=== PATIENT | female | born 1965 | race Caucasian/White ===

== ENCOUNTER 2017-03-05 21:22 | Inpatient (IN) | payer OTHER ==
[~2017-03-05] VITALS: Ht 170.2 cm; Wt 171.0 kg
[2017-03-05] MEDS ORDERED: SOD CHLORIDE 0.9% 500 ML IV STA (23:32)
[2017-03-05] MEDS ORDERED: ONDANSETRON 4 MG INJ IV STA (23:32)
[2017-03-05] MEDS ORDERED: HYDROmorphONE 1 MG/ML SYG IV STA (23:32)
[2017-03-05 23:53] LABS: ADD SCAN DIFF NO
[2017-03-05 23:54] LABS: BASOPHIL # 0.1 10^3/ul (0.0-0.1); BASOPHILS % 0.4 % (0.0-2.0); EOSINOPHILS # 0.2 10^3/ul (0.0-0.5); EOSINOPHILS % 1.3 % (0.0-7.0); HEMATOCRIT 40.7 % (37.0-47.0); HEMOGLOBIN 12.3 g/dl (12.0-16.0); LYMPHOCYTES # 2.5 10^3/ul (0.8-2.9); LYMPHOCYTES % 15.8 % (15.0-51.0); MEAN CORPUSCULAR HEMOGLOBIN 24.5 pg (29.0-33.0); MEAN CORPUSCULAR HGB CONC 30.2 g/dl (32.0-37.0); MEAN CORPUSCULAR VOLUME 80.9 fl (82.0-101.0); MEAN PLATELET VOLUME 9.1 fl (7.4-10.4); MONOCYTES % 6.2 % (0.0-11.0); NEUTROPHIL # 12.2 10^3/ul (1.6-7.5); NEUTROPHILS % 75.9 % (39.0-77.0); PLATELET COUNT 553 10^3/UL (140-415); RED BLOOD COUNT 5.03 10^6/ul (4.20-5.40); RED CELL DISTRIBUTION WIDTH 15.6 % (11.5-14.5); WHITE BLOOD COUNT 16.1 10^3/ul (4.8-10.8)
[2017-03-06] MEDS ORDERED: CETI10CA PO (00:10)
[2017-03-06] MEDS ORDERED: RANI150T9 PO (00:10)
[2017-03-06] MEDS ORDERED: AMLO-147 PO (00:10)
[2017-03-06] MEDS ORDERED: VALS1TAB12 PO (00:10)
[2017-03-06] MEDS ORDERED: IBUP200C11 PO (00:10)
[2017-03-06 00:15] LABS: ALANINE AMINOTRANSFERASE 24 IU/L (13-69); ALBUMIN 4.2 g/dl (3.3-4.9); ALBUMIN/GLOBULIN RATIO 0.93; ALKALINE PHOSPHATASE 113 IU/L (42-121); ANION GAP 14 (8-16); ASPARTATE AMINO TRANSFERASE 17 IU/L (15-46); BILIRUBIN,INDIRECT 0.3 mg/dl (0-1.1); BILIRUBIN,TOTAL 0.3 mg/dl (0.2-1.3); BLOOD UREA NITROGEN 12 mg/dl (7-20); CALCIUM 9.5 mg/dl (8.4-10.2); CARBON DIOXIDE 24 mmol/L (21-31); CHLORIDE 103 mmol/L (97-110); CREATININE 0.92 mg/dl (0.44-1.00); GLUCOSE 98 mg/dl (70-220); POTASSIUM 3.7 mmol/L (3.5-5.1); SODIUM 137 mmol/L (135-144); TOTAL PROTEIN 8.7 g/dl (6.1-8.1)
[2017-03-06 00:30] LABS: TROPONIN-I < 0.012 ng/ml (0.00-0.12)
[2017-03-06 01:51] LABS: ADD UMIC YES; URINE BLOOD (Dip) NEGATIVE (NEGATIVE); URINE COLOR YELLOW (YELLOW); URINE GLUCOSE (Dip) NEGATIVE (NEGATIVE); URINE KETONES (Dip) NEGATIVE (NEGATIVE); URINE LEUKOCYTE ESTERASE (Dip) NEGATIVE (NEGATIVE); URINE NITRITE (Dip) NEGATIVE (NEGATIVE); URINE TOTAL PROTEIN (Dip) 1+ (NEGATIVE); URINE UROBILINOGEN (Dip) 0.2 E.U./dL (0.1-1.0)
[2017-03-06 02:04] LABS: URINE BILIRUBIN (Dip) NEGATIVE (NEGATIVE)
[2017-03-06 02:07] LABS: BACTERIA,URINE FEW; MUCUS,URINE OCCASIONAL; SQUAMOUS EPITHELIAL CELL,UR MANY; URINE RBCS 0-2 /HPF (0)
[2017-03-06] MEDS ORDERED: LEVOFLOXACIN 750MG/D5W (PMX) 150 ML IVPB STA (03:31)
--- NOTE | 2017-03-06 03:48 | ERA ---
ER Documentation Chief Complaint Date/Time DATE: 03/06/17 TIME: 03:44 Chief Complaint dizziness, chest pain, headache x 2 days left flank pain since last night HPI This is a 51-year-old female who has multiple complaints. She is complaining of off-and-on dizziness, 1-2 episodes of 2 seconds of chest pain yesterday. Vague headaches off and on for past few weeks. He dull left flank pain is off and on for a few days. And does not mention her right breast lesion/erosion/ redness until I prompted her with the question. The nurse is the one who informed me of her right breast issue. The patient states that her right breast has been gradually eroding in certain areas at the medial aspect of the breast. Patient has a quarter sized area where soft tissue is eroded and inferior to that there are several smaller areas with surrounding erythema there is no leakage of pus or malodor. There does appear to be a palpable mass underneath this area. She has had this lesion for 8 months now. ROS All systems reviewed and are negative except as per history of present illness. Medications Home Meds Reported Medications Ibuprofen* (Advil*) 200 Mg Capsule, 800 MG PO QHS Y for PAIN, CAP 03/06/17 Ranitidine Hcl* (Zantac*) 150 Mg Tablet, 150 MG PO PRN, #60 TAB 03/06/17 Cetirizine Hcl* (Zyrtec*) 10 Mg Capsule, 10 MG PO Y for ALLERGY SIGNS, TAB 03/06/17 Valsartan/Hydrochlorothiazide (Diovan Hct 160-25 mg Tablet) 1 Each Tablet, 1 EACH PO DAILY, TAB 03/06/17 Amlodipine Besylate* (Amlodipine Besylate*) 10 Mg Tablet, 10 MG PO DAILY, #30 TAB 03/06/17 Allergies Allergies: Coded Allergies: cefazolin (Verified Allergy, Unknown, 03/05/17) vancomycin (Verified Allergy, Unknown, 03/05/17) PMhx/Soc History of Surgery: Yes (RT ANKLE) Anesthesia Reaction: No Hx Neurological Disorder: No Hx Respiratory Disorders: No Hx Cardiac Disorders: No Hx Psychiatric Problems: No Hx Miscellaneous Medical Probl: No Hx Alcohol Use: No Hx Substance Use: No Hx Tobacco Use: No Smoking Status: Never smoker FmHx Family History: No coronary disease Physical Exam Vitals Vital Signs Date Time Temp Pulse Resp B/P Pulse Ox O2 Delivery O2 Flow Rate FiO2 03/06/17 02:00 89 16 117/79 100 Room Air 03/05/17 21:29 99.6 109 20 187/88 96 Physical Exam C Const: Well-developed, well-nourished Head: Atraumatic, normocephalic Eyes: Normal Conjunctiva, PERRLA, EOMI, normal sclera, no nystagmus ENT: Normal External Ears, Nose and Mouth, moist mucus membranes. Neck: Full range of motion. No meningismus, no lymphadenopathy. Resp: Clear to auscultation bilaterally, no wheezing, rhonchi, rales, the right breast has a quarter sized area of skin breakdown with protruding subcutaneous skin or a mass. There is a palpable firmness underneath his inferior and medial to this there are 2 linear like skin excoriations with surrounding erythema no weeping of pus or gross abscess Cardio: Regular rate and rhythm, no murmurs, S1 S2 present Abd: Soft, non tender x 4, non distended. Normal bowel sounds, no guarding or rebound, no pulsitile abdominal masses or bruits Skin: No petechiae or rashes, no ecchymosis , no maculopapular rash Back: No midline or flank tenderness Ext: No cyanosis, or edema, FROM x 4, normal inspection, neurovascularly intact x 4 Neur: Awake and alert, STR 5/5 x 4, sensation intact x 4, no focal findings, cerebellum intact Psych: Normal Mood and Affect Result Diagram: 03/05/17 2340 03/05/17 2340 Results 24 hrs Laboratory Tests Test 03/05/17 23:40 03/06/17 01:00 White Blood Count 16.110^3/ul Red Blood Count 5.0310^6/ul Hemoglobin 12.3g/dl Hematocrit 40.7% Mean Corpuscular Volume 80.9fl Mean Corpuscular Hemoglobin 24.5pg Mean Corpuscular Hemoglobin Concent 30.2g/dl Red Cell Distribution Width 15.6% Platelet Count 94007^3/UL Mean Platelet Volume 9.1fl Neutrophils % 75.9% Lymphocytes % 15.8% Monocytes % 6.2% Eosinophils % 1.3% Basophils % 0.4% Nucleated Red Blood Cells % 0.0/100WBC Neutrophils # 12.210^3/ul Lymphocytes # 2.510^3/ul Monocytes # 1.010^3/ul Eosinophils # 0.210^3/ul Basophils # 0.110^3/ul Nucleated Red Blood Cells # 0.010^3/ul Sodium Level 137mmol/L Potassium Level 3.7mmol/L Chloride Level 103mmol/L Carbon Dioxide Level 24mmol/L Anion Gap 14 Blood Urea Nitrogen 12mg/dl Creatinine 0.92mg/dl Glucose Level 98mg/dl Calcium Level 9.5mg/dl Total Bilirubin 0.3mg/dl Direct Bilirubin 0.00mg/dl Indirect Bilirubin 0.3mg/dl Aspartate Amino Transf (AST/SGOT) 17IU/L Alanine Aminotransferase (ALT/SGPT) 24IU/L Alkaline Phosphatase 113IU/L Troponin I < 0.012ng/ml Total Protein 8.7g/dl Albumin 4.2g/dl Globulin 4.50g/dl Albumin/Globulin Ratio 0.93 Urine Color YELLOW Urine Clarity SLIGHTLY CLOUDY Urine pH 6.0 Urine Specific Amigo >=1.030 Urine Ketones NEGATIVE Urine Nitrite NEGATIVE Urine Bilirubin NEGATIVE Urine Urobilinogen 0.2 E.U./dL Urine Leukocyte Esterase NEGATIVE Urine Microscopic RBC 0-2/HPF Urine Microscopic WBC 0-2/HPF Urine Squamous Epithelial Cells MANY Urine Bacteria FEW Urine Mucus OCCASIONAL Urine Hemoglobin NEGATIVE Urine Glucose NEGATIVE% Urine Total Protein 1+ Current Medications Medications (Trade) Dose Ordered Sig/Gearrdo Route PRN Reason Start Time Stop Time Status Last Admin Dose Admin Sodium Chloride (NS) 500 ml @ 500 mls/hr Q1H STAT IV 03/05/17 23:32 03/06/17 00:31 DC 03/05/17 23:45 Hydromorphone HCl (Dilaudid) 1 mg ONCE STAT IV 03/05/17 23:32 03/05/17 23:38 DC Ondansetron HCl 4 mg 4 mg ONCE STAT IV 03/05/17 23:32 03/05/17 23:38 DC Levofloxacin/ Dextrose (Levaquin 750 Mg/ D5W 150 ml (Pmx)) 150 ml @ 100 mls/hr ONCE STAT IVPB 03/06/17 03:31 03/06/17 05:00 Acetaminophen/ Hydrocodone Bitart (Muir (10/325)) 1 tab ONCE ONCE PO 5/25/17 04:00 03/06/17 04:01 Procedures/MDM A breast ultrasound was ordered however I could not get this done tonight because the radiologist on-call is not able to read breast ultrasound. Patient is elevated white blood count will get blood cultures and give antibiotics. Will admit the patient for infected right breast and get an ultrasound in the morning to rule out infected breast cancer or an abscess Departure Diagnosis: Primary Impression: Cellulitis of right breast Additional Impression: Leukocytosis Qualified Code: D72.829 - Leukocytosis, unspecified type Condition: Stable KULDEEP DUMONT DO March 06, 2017 03:48
[2017-03-06] MEDS ORDERED: ONDANSETRON 4 MG INJ IV PRN ×2 (04:00→05:30)
[2017-03-06] MEDS ORDERED: HYDROCODONE/APAP (10/325) TAB PO ONE (04:00)
[2017-03-06] MEDS ORDERED: ACETAMINOPHEN 325 MG TAB PO PRN ×2 (04:00→05:30)
[2017-03-06 04:52] VITALS: Ht 170.2 cm; Wt 171.0 kg
[2017-03-06] MEDS ORDERED: NACL 0.9% 3 ML SYG IV SCH (05:30)
[2017-03-06] MEDS ORDERED: TOBRAMYCIN 80 MG in SOD CHLORIDE 0.9% 50 ML IVPB SCH (05:30)
[2017-03-06] MEDS ORDERED: morphine 2 MG INJ IV PRN (05:30)
[2017-03-06] MEDS ORDERED: RANITIDINE 150 MG TAB PO SCH (05:30)
[2017-03-06] MEDS ORDERED: CLINDAMYCIN 600 MG/D5W (PMX) 50 ML IVPB SCH (05:30)
--- NOTE | 2017-03-06 07:34 | HP ---
DATE OF ADMISSION: 03/06/2017 TIME SEEN: 5 a.m. CHIEF COMPLAINT: "Vertigo and right breast infection." HISTORY OF PRESENT ILLNESS: The patient is a 51-year-old obese female who previously used to work a s a nurse, who presented to the emergency department with the above stated chief complaint. She sta arnol that she has been having symptoms of vertigo for quite some time, which has worsened over the pa st few days. She stated secondary to "an inner ear problem". She also reported that about a year a go she noted some skin change and her skin sloughing off on her right breast. She then started noti cing some palpable mass, as well as an open wound, which has been progressively getting worse. Even though this started a year ago, she never went to a doctor to have it looked at. 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 She states she has been depressed over the past 3 years after she was let g o of her work from [employer] after 30 years because she was taking care of her sick family member s and as a result she was taking a lot of time off and she stated that it was because of that she wa s let go, and since then she has been feeling depressed. She also stated she was never , has no kids and lives alone now, and that is also contributing to her depression. She said she is neve r suicidal or homicidal. Of note, she also requested that she be DNR/DNI. She denied any chest jeffery n, shortness of breath, loss of consciousness, fever, chills, abdominal pain, or urinary symptoms. When she presented to the ER her blood pressure was 187/80, heart rate of 109, respiratory rate 20, temperature 98.6, oxygen saturation 96% on room air. Laboratory values are notable for a WBC of 16, 000, platelets 553, otherwise CBC and CMP are within acceptable range. A breast ultrasound was orde red while the patient was in the ER, but it was not done because the radiologist who was stone fabricator was not able to read the breast ultrasound. The on-call surgeon, I believe Dr. Casas, was consulted b y the ER physician. She received a dose of Levaquin in the ER. NOTE THAT SHE IS ALLERGIC TO VANCOM YCIN AND CEFAZOLIN. REVIEW OF SYSTEMS: A 12-point review of systems was performed and negative except as in the HPI. PAST MEDICAL HISTORY: As per HPI. PAST SURGICAL HISTORY: Right ankle surgery in 2009. SOCIAL HISTORY: Denied a history of tobacco, alcohol or illicit drug use. ALLERGIES: 1. CEFAZOLIN. 2. VANCOMYCIN. HOME MEDICATIONS: 1. Amlodipine. 2. Diovan 3. Ibuprofen. 4. Zantac. 5. Zyrtec. PHYSICAL EXAMINATION: VITAL SIGNS: Currently stable. GENERAL: A morbidly obese female lying in bed, in no acute distress. She is able to speak in full sentences. She is pleasant to talk to. She is alert and oriented x4. HEENT: No obvious head deformity. Pupils are equal and reactive to light. Extraocular muscles are intact. CARDIOVASCULAR: Slightly tachycardic, regular rhythm. LUNGS: Clear anteriorly. ABDOMEN: Obese, soft, nontender, nondistended. Positive bowel sounds. EXTREMITIES: No edema. NEUROLOGIC: No focal deficits. BREASTS: There are several discolorations, as well as a pink exposed area on the right breast. Ther e is also a palpable mass. I did not appreciate any tenderness during examination. Also no bloody discharge was noted. LABORATORY: Pertinent positive results as mentioned in the HPI. IMPRESSION: 1. Right breast cellulitis/probable abscess, with possible underlying malignancy. 2. Sepsis, as evidenced by leukocytosis and tachycardia, secondary to above. 3. Hypertensive urgency, resolved. 4. Chronic vertigo, currently stable. 5. Morbid obesity. PLAN: She will be placed on an antibiotic, noting that SHE IS ALLERGIC TO VANCOMYCIN AND CEFAZOLIN. Will place an ID consult. Given presentation of sepsis, will send blood culture and urine culture , as well as culture from her right breast. Will provide pain medication as needed. Currently she is awaiting surgical evaluation. Will continue her home medications, with adjustment as needed. Further workup and management per clinical course. CODE STATUS: DNR/DNI. Dictated By: REJI ELIZALDE MD DA/KATHLEEN Conf#: [id number] DID#: [id number]
[2017-03-06 08:07] VITALS: BP 107/53; RESP 16
[2017-03-06] MEDS: CLINDAMYCIN 600 MG/D5W (PMX) 50 ML IVPB SCH ×3 (08:43→23:21)
[2017-03-06] MEDS: HYDROCHLOROTHIAZIDE 25 MG TAB PO SCH (08:43)
[2017-03-06] MEDS: VALSARTAN 160 MG TAB PO SCH (08:43)
[2017-03-06] MEDS: AMLODIPINE 10 MG TAB PO SCH (09:58)
[2017-03-06] MEDS: morphine 4 MG/ML VIAL IV PRN (12:55)
--- NOTE | 2017-03-06 14:21 | CONS ---
[facility] INITIAL INPATIENT CONSULTATION NOTE DATE OF CONSULTATION: 03/06/2017 PLACE OF SERVICE: [facility], Second floor, [facility]. ASSESSMENT AND PLAN: A very pleasant but unfortunate 51-year-old lady with history of breast cancer in her mother, as well as lymphoma in her mother and a BMI of 59 for herself as her major comorbidity, presenting with what appears to be a malignant process in her breast. It is difficult to characterize the extent of the disease, but she definitely does not have a picture consistent with inflammatory breast cancer and there is no obvious indication of an abscess based on my clinical exam. The findings are certainly concerning for oncologic issues in the breast and the patient certainly needs further workup to better characterize these areas. The issues that have hampered her from seeking care are her depression and anxiety and her previous personal experience with her mother. I did my best to explain our findings so far and to reassure her that it would be better for us to know the information and at least be able to give her realistic options and more accurate assessment of her risks, benefits and alternatives prior to her making a decision. I described to her my concerns about the possibility of malignancy in her breast, which I believe she understands and also agrees with. She appeared to be agreeable to performance of diagnostic workup for us to figure out exactly what the nature of this disease is and then hopefully we can be able to lay out the options better. I answered all her questions to the best of my ability and she appeared to understand and agree with the plan. With above assessment, I recommend the followin. Bilateral breast ultrasound. 2. Bilateral mammograms. 3. Breast MRI. 4. Brain MRI. 5. Ultrasound-guided breast biopsy of lesion and other masses that may be found on imaging. 6. Oncology consultation. 7. Multidisciplinary Tumor Board presentation. Thank you again for allowing us to participate in the care of this very pleasant lady and I am certain her wonderful family. If there are any questions , please feel free to contact me at [phone]. UPDATED CLINICAL SUMMARY: The patient is a very pleasant 51-year-old lady with comorbidities including BMI of 59 and a history of breast cancer and lymphoma in her mother, presenting through the emergency department to [facility] with a right breast mass that appears to be invading through the skin with minimal discharge. Her main reason for admission was vertigo and right breast infection. COMORBIDITIES: 1. BMI of 59. 2. History of breast cancer in patient's mother diagnosed in her 40s and lived to mid-60s before passing away from lymphoma, which was a second malignancy in her. No other major malignancy reported in the family including no uterine cancer, ovarian cancer, cervical cancer or breast cancer in male members of the family. 3. Anxiety. 4. Depression. 5. Vertigo. 6. Right ankle fracture status post repair with surgery. 7. Inner ear problem per report of the patient. Status post brain scans (? MRI versus CT) at [facility] approximately 2013. DATE OF ADMISSION: 03/06/2017 HISTORY OF PRESENT ILLNESS: The patient is a very pleasant 51-year-old lady with above-mentioned comorbidities who we were kindly asked to consult regarding management of her right breast lesion. She was admitted through the emergency department, as mentioned above with vertigo and breast infection concerns. She reported knowing about abnormal breast findings for approximately a year, but she had chosen not to do any further workup or seek any treatment for it. She sighted fear of radiation injury and anxiety that she had gone through with her mother's breast cancer as the main reasons. She reported no discharge from her breasts bilaterally. She reported doing her own breast exams semi-regularly but had not had a mammogram or an ultrasound for more than 5 years. She had not noted any weight loss or change in appetite, no nausea or vomiting, and the only other issue was vertigo. ALLERGIES: CEFAZOLIN. VANCOMYCIN. HOME MEDICATIONS: 1. Amlodipine. 2. Diovan. 3. Ibuprofen. 4. Zantac. 5. Zyrtec. 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 She does not report any smoking, drinking, or intravenous drug use. FAMILY HISTORY: As above. REVIEW OF SYSTEMS: Other than the above-mentioned, there are no other pertinent positives or pertinent negatives in a complete 14-point review of systems. PHYSICAL EXAMINATION: GENERAL: The patient appears to be a very pleasant /[place] descent lady lying in bed comfortably and in no acute distress. BMI is 59. VITAL SIGNS: Temperature 97.8, blood pressure 107/53, pulse 93, respiratory rate 16, pulse oximetry 95% on room air. HEENT: Normocephalic and atraumatic. Extraocular muscles and hearing are grossly intact bilaterally and symmetrically. Sclerae are nonicteric. Oral cavity is clear; oral mucosa appeared to be pink and moist. Dentition: fair. NECK: Supple. There is no lymphadenopathy or JVD. There is no submental, submandibular or supraclavicular lymphadenopathy. CHEST: Rises symmetrically with each breath; patient is breathing comfortably. There are no audible wheezes, rales or rhonchi on the gross exam. BREAST: Exam is normal on the left and the left axilla shows no masses. Breast exam on the right demonstrates a [id number]-[id number] but slightly erythematous skin overlying the medial aspect of the skin next to the nipple areolar complex and a large area approximately 20 cm in diameter with 2 or 3 areas of granulation tissue coming out through the skin. The breasts are both dense and I do not feel a discrete mass, but both breasts contain areas that feel like there is either dense breast tissue or underlying masses. Right axilla shows no evidence of lymphadenopathy that is obvious. No discharge from nipples on either side.HEART: Pulse is regular and palpable on the right wrist. Capillary refill was normal. Carotid pulses are palpable bilaterally and symmetrically in the neck. EXTREMITIES: Lower extremities contain no pitting edema around the ankles bilaterally and symmetrically. ABDOMEN: Abdomen is soft, nontender and nondistended. There are no peritoneal signs or guarding. No evidence of ascites, organomegaly, caput medusae, engorged subcutaneous veins, or other abnormalities. SKIN: Appears to be pink and feels warm to touch. NEUROLOGIC: Awake, alert, and follows commands appropriately. LABORATORY DATA: White blood cell count 16.1, hemoglobin 12.3, platelets 553. Electrolytes are normal. CO2 24, creatinine 0.92. Liver function and injury parameters are normal. Albumin 4.2 prior to resuscitation urinalysis was negative for leukocyte esterase or nitrite. IMAGING: None. Dictated By: SHIRA JAUREGUI/KATHLEEN Conf#: [id number] DID#: [id number] [facility]ITAL[facility]ita
--- NOTE | 2017-03-06 15:28 | PN ---
Date/Time of Note Date/Time of Note DATE: 03/06/17 TIME: 15:15 Assessment/Plan VTE Prophylaxis VTE Prophylaxis Intervention: SCD's Lines/Catheters IV Catheter Type (from [facility]): Saline [facility] Assessment/Plan Assessment/Plan 1. Right breast lesion, follow up with MRI/mamogram, on clindamycin 2. Leukocytosis, follow up with CBC 3. Hypertensive, controlled 4. Chronic vertigo, currently stable. 5. Morbid obesity. Subjective 24 Hr Interval Summary Free Text/Dictation vertigo is resolved. No fever or chills Exam/Review of Systems Vital Signs Vitals Vital Signs Date Time Temp Pulse Resp B/P Pulse Ox O2 Delivery O2 Flow Rate FiO2 03/06/17 08:07 97.9 93 16 107/53 95 03/06/17 04:00 Room Air Intake and Output 03/05/17 03/05/17 03/06/17 15:00 23:00 07:00 Intake Total 150 ml Balance 150 ml Exam Constitutional: alert, oriented, well developed Head: atraumatic, normocephalic Eyes: EOMI, PERRL, nl conjunctiva, nl lids, nl sclera ENMT: nl external ears & nose, nl lips & teeth Neck: non-tender, supple Respiratory: clear to auscultation, normal air movement, No congested cough, No crackles/rales, No diminished breath sounds, No intercostal retraction, No labored breathing, No other, No respirations, No tactile fremitus, No wheezing Cardiovascular: nl pulses, regular rate and rhythm, No S3, No S4, No bruits, No diastolic murmur, No edema, No gallop, No irregular rhythm, No jugular venous distention (JVD), No murmurs/extra sounds, No other, No rub, No systolic murmur Gastrointestinal: nl liver, spleen, non-tender, soft, No ascites, No bowel sounds, No distended, No firm, No hepatomegaly, No mass , No other, No rebound or guarding, No splenomegaly, No surgical scars, No tender Musculoskeletal: nl extremities to inspection Extremities: normal pulses, No calf tenderness, No clubbing, No cyanosis, No edema, No other, No palpable cord, No pitting pedal edema, No tenderness Neurological: PRESSFITTER II-XII intact, nl mental status, nl speech, nl strength Skin: other (right breast lesion, lump) Lymph: nl lymph nodes Results Result Diagram: 03/05/17 2340 03/05/17 2340 Results 24 hrs Laboratory Tests Test 03/05/17 23:40 03/06/17 01:00 White Blood Count 16.1 H Red Blood Count 5.03 Hemoglobin 12.3 Hematocrit 40.7 Mean Corpuscular Volume 80.9 L Mean Corpuscular Hemoglobin 24.5 L Mean Corpuscular Hemoglobin Concent 30.2 L Red Cell Distribution Width 15.6 H Platelet Count 553 H Mean Platelet Volume 9.1 Neutrophils % 75.9 Lymphocytes % 15.8 Monocytes % 6.2 Eosinophils % 1.3 Basophils % 0.4 Nucleated Red Blood Cells % 0.0 Neutrophils # 12.2 H Lymphocytes # 2.5 Monocytes # 1.0 H Eosinophils # 0.2 Basophils # 0.1 Nucleated Red Blood Cells # 0.0 Sodium Level 137 Potassium Level 3.7 Chloride Level 103 Carbon Dioxide Level 24 Anion Gap 14 Blood Urea Nitrogen 12 Creatinine 0.92 Glucose Level 98 Calcium Level 9.5 Total Bilirubin 0.3 Direct Bilirubin 0.00 Indirect Bilirubin 0.3 Aspartate Amino Transf (AST/SGOT) 17 Alanine Aminotransferase (ALT/SGPT) 24 Alkaline Phosphatase 113 Troponin I < 0.012 Total Protein 8.7 H Albumin 4.2 Globulin 4.50 H Albumin/Globulin Ratio 0.93 Urine Color YELLOW Urine Clarity SLIGHTLY CLOUDY Urine pH 6.0 Urine Specific Jones >=1.030 H Urine Ketones NEGATIVE Urine Nitrite NEGATIVE Urine Bilirubin NEGATIVE Urine Urobilinogen 0.2 E.U./dL Urine Leukocyte Esterase NEGATIVE Urine Microscopic RBC 0-2 Urine Microscopic WBC 0-2 Urine Squamous Epithelial Cells MANY Urine Bacteria FEW Urine Mucus OCCASIONAL Urine Hemoglobin NEGATIVE Urine Glucose NEGATIVE Urine Total Protein 1+ H Medications Medications Current Medications Ondansetron HCl (Zofran Inj) 4 mg Q6H PRN IV NAUSEA AND/OR VOMITING; Start at 05:30 Acetaminophen (Tylenol Tab) 650 mg Q6H PRN PO PAIN LEVEL 1-3 OR FEVER; Start at 05:30 Amlodipine Besylate (Norvasc) 10 mg DAILY PO Last administered on 03/06/17t 09: 58; Admin Dose 10 MG; Start 03/06/17 at 09:00 Ranitidine HCl (Zantac) 150 mg PRN PO ; Start 03/06/17 at 05:30 Valsartan (Diovan) 160 mg DAILY PO Last administered on 03/06/17 08:43; Admin Dose 160 MG; Start 03/06/17 at 09:00 Morphine Sulfate (morphine) 4 mg Q4H PRN IV SEVERE PAIN LEVEL 7-10 Last administered on 03/06/17 12:55; Admin Dose 4 MG; Start 03/06/17 at 05:38 Hydrochlorothiazide 25 mg 25 mg DAILY PO Last administered on 03/06/17 08:43; Admin Dose 25 MG; Start 03/06/17 at 09:00 Clindamycin HCl/ Dextrose 50 ml @ 50 mls/hr Q8H IVPB Last administered on 08:43; Admin Dose 50 MLS/HR; Start 03/06/17 at 08:00 Tobramycin/Sodium Chloride (Tobramycin/NS) 112.5 ml @ 103.75 mls/ hr Q24H IVPB ; Start 03/06/17 at 17:00 Miscellaneous Information (*Rx Drug Level Order Reminder*) RANDOM TOBRAMYCIN LEVEL 5... ONCE ONCE XX ; Start 03/07/17 at 05:00; Stop 03/07/17 at 05:01 JARVIS DACOSTA MD March 06, 2017 15:25
[2017-03-06] MEDS ORDERED: TOBRAMYCIN IVPB SCH (17:00)
[2017-03-06] MEDS ORDERED: SOD CHLORIDE 0.9% IVPB SCH (17:00)
[2017-03-06] MEDS: HYDROCODONE/APAP (5/325) TAB PO PRN (19:37)
[2017-03-06] MEDS ORDERED: SPECIAL NON-STANDARD MEDICATION PO SCH (21:00)
[2017-03-06] MEDS ORDERED: LORAZEPAM 2 MG INJ IM PRN ×2 (22:14→22:30)
[2017-03-06] MEDS ORDERED: LORAZEPAM 2 MG INJ IV PRN (22:30)
[2017-03-06] MEDS: ZOLPIDEM 5 MG TAB PO PRN ×2 (23:27→23:47)
[2017-03-07 05:14] LABS: ADD SCAN DIFF NO
[2017-03-07 05:17] LABS: BASOPHILS % 0.5 % (0.0-2.0); EOSINOPHILS # 0.2 10^3/ul (0.0-0.5); EOSINOPHILS % 2.7 % (0.0-7.0); HEMATOCRIT 37.2 % (37.0-47.0); HEMOGLOBIN 11.4 g/dl (12.0-16.0); LYMPHOCYTES # 1.8 10^3/ul (0.8-2.9); LYMPHOCYTES % 20.5 % (15.0-51.0); MEAN CORPUSCULAR HEMOGLOBIN 24.6 pg (29.0-33.0); MEAN CORPUSCULAR HGB CONC 30.6 g/dl (32.0-37.0); MEAN CORPUSCULAR VOLUME 80.3 fl (82.0-101.0); MEAN PLATELET VOLUME 9.1 fl (7.4-10.4); MONOCYTE # 0.7 10^3/ul (0.3-0.9); MONOCYTES % 7.8 % (0.0-11.0); NEUTROPHILS % 68.3 % (39.0-77.0); PLATELET COUNT 499 10^3/UL (140-415); RED BLOOD COUNT 4.63 10^6/ul (4.20-5.40); RED CELL DISTRIBUTION WIDTH 15.6 % (11.5-14.5); WHITE BLOOD COUNT 8.8 10^3/ul (4.8-10.8)
[2017-03-07 05:38] LABS: ALBUMIN 3.5 g/dl (3.3-4.9)
[2017-03-07 05:39] LABS: POTASSIUM 4.2 mmol/L (3.5-5.1)
[2017-03-07 05:41] LABS: BILIRUBIN,INDIRECT 0.3 mg/dl (0-1.1); BILIRUBIN,TOTAL 0.3 mg/dl (0.2-1.3); CREATININE 1.11 mg/dl (0.44-1.00)
[2017-03-07 05:42] LABS: CALCIUM 9.2 mg/dl (8.4-10.2); PHOSPHORUS 5.1 mg/dl (2.5-4.9)
[2017-03-07] MEDS: HYDROCHLOROTHIAZIDE 25 MG TAB PO SCH (08:36)
[2017-03-07] MEDS: VALSARTAN 160 MG TAB PO SCH (08:36)
[2017-03-07] MEDS: AMLODIPINE 10 MG TAB PO SCH (08:37)
[2017-03-07] MEDS: CLINDAMYCIN 600 MG/D5W (PMX) 50 ML IVPB SCH ×3 (08:37→23:42)
[2017-03-07] MEDS: HYDROCODONE/APAP (5/325) TAB PO PRN ×3 (08:46→21:42)
[2017-03-07 08:53] VITALS: BP 140/84; RESP 16
[2017-03-07] MEDS: LEVOFLOXACIN 750MG/D5W (PMX) 150 ML IVPB SCH (10:39)
--- NOTE | 2017-03-07 10:46 | RADRPT ---
PROCEDURE: Bilateral breast ultrasound. CLINICAL INDICATION: Right breast mass TECHNIQUE: Bilateral whole breast, 4 quadrant and retroareolar, and axillary sonography was perfor med. COMPARISON: None. FINDINGS: Left Breast: No solid or suspicious masses. No malignant adenopathy. No cysts are present. Right Breast: 2-3:00 Mass: 1.8 x 1.6 x 0.7 cm superficial located hypoechoic mass most consistent with sebaceous cyst.. IMPRESSION: 1. Palpable lump that corresponds to 1.8 cm sebaceous cyst 2. Recommend the patient return for routine annual screening mammogram unless there are new clinica l findings in the interim. BI-RADS 2: BENIGN RPTAT: EE .Bin Grey MD, MD Date Time Electronically viewed and signed by .Bin Grey MD, on 03/07/2017 10:46 .M/
--- NOTE | 2017-03-07 14:00 | PN ---
Date/Time of Note Date/Time of Note DATE: 03/07/17 TIME: 13:55 Assessment/Plan Lines/Catheters IV Catheter Type (from [facility]): Peripheral IV Assessment/Plan Assessment/Plan [facility] Progress Note Date of Service: 03/07/17 Today's Impression & Plan: Overall stable. R breast US did not show obvious mass (very good news). Still need more information regarding breasts. Unfortunately surpasses our MRI machine weight limits, but able to have CT. Head CT and chest CT with contrast ordered and discussed with . No indication for acute surgical intervention. With above assessment, I've recommended the following for today: 1. head and chest CT 2. possible need to set up for outpatient MRI of the breast along with bilateral mammogram and breast ultrasound 3. continue current wound care to breast skin lesions 4. follow up with PCP as an outpatient and with us if needed after above 5. multidisciplinary tumor board presentation Thank you again for your great care of this very pleasant patient and wonderful family. If there are any questions, please feel free to call me at [phone]. TOTAL VISIT TIME: 20 minutes of which more than half was spent in [id number] discussion with the patient, possibly including family, as well as coordination of care between multiple physicians and providers. Disclaimer: Inadvertent spelling or grammatical errors are likely due to EHR/ dictation software use and do not reflect on the overall quality of patient care. Updated Clinical Summary: The patient is a very pleasant 51-year-old lady with comorbidities including BMI of 59 and a history of breast cancer and lymphoma in her mother, presenting through the emergency department to [facility] with a right breast mass that appears to be invading through the skin with minimal discharge. Her main reason for admission was vertigo and right breast infection. COMORBIDITIES: 1. BMI of 59. 2. History of breast cancer in patient's mother diagnosed in her 40s and lived to mid-60s before passing away from lymphoma, which was a second malignancy in her. No other major malignancy reported in the family including no uterine cancer, ovarian cancer, cervical cancer or breast cancer in male members of the family. 3. Anxiety. 4. Depression. 5. Vertigo. 6. Right ankle fracture status post repair with surgery. 7. Inner ear problem per report of the patient. Status post brain scans (? MRI versus CT) at [facility] approximately 2013. Subjective: No major events or complaints; unable to have MRI due to weight; no pain; no n/v /d; no sob or cp; + bowel activity; minimal activity Objective: Vitals: See below Exam: GENERAL: On exam, the patient was laying in bed and appeared to be comfortable and in no acute distress. SKIN: Skin appears to be pink and feels warm to touch. NEUROLOGIC: Patient is awake, alert, and follows commands appropriately. Exam/Review of Systems Vital Signs Vitals Vital Signs Date Time Temp Pulse Resp B/P Pulse Ox O2 Delivery O2 Flow Rate FiO2 03/07/17 08:53 98.3 109 16 140/84 98 03/06/17 04:00 Room Air Intake and Output 03/06/17 03/06/17 03/07/17 15:00 23:00 07:00 Intake Total 102 ml 1302.5 ml 490 ml Balance 102 ml 1302.5 ml 490 ml Results Result Diagram: 03/07/17 0451 03/07/17 0440 SHIRA GOODSON M.D. March 07, 2017 14:00
--- NOTE | 2017-03-07 15:32 | PN ---
Date/Time of Note Date/Time of Note DATE: 03/07/17 TIME: 15:25 Assessment/Plan VTE Prophylaxis VTE Prophylaxis Intervention: SCD's Lines/Catheters IV Catheter Type (from [facility]): Peripheral IV Assessment/Plan Assessment/Plan 1. Right breast sebaceous cyst with cellulitis, on antibiotics(levaquin/ clindamycin) 2. Hypertensive, controlled 3. Chronic vertigo, currently stable. 4. Morbid obesity. Subjective 24 Hr Interval Summary Free Text/Dictation afebrile Exam/Review of Systems Vital Signs Vitals Vital Signs Date Time Temp Pulse Resp B/P Pulse Ox O2 Delivery O2 Flow Rate FiO2 03/07/17 08:53 98.3 109 16 140/84 98 03/06/17 04:00 Room Air Intake and Output 03/06/17 03/06/17 03/07/17 14:59 22:59 06:59 Intake Total 102 ml 1302.5 ml 490 ml Balance 102 ml 1302.5 ml 490 ml Exam Constitutional: alert, oriented Psych: nl mood/affect, no complaints Head: atraumatic, normocephalic Eyes: EOMI, PERRL, nl conjunctiva, nl lids ENMT: nl external ears & nose, nl lips & teeth, nl nasal mucosa & septum Neck: non-tender, supple Respiratory: clear to auscultation, normal air movement, No congested cough, No crackles/rales, No diminished breath sounds, No intercostal retraction, No labored breathing, No other, No respirations, No tactile fremitus, No wheezing Cardiovascular: nl pulses, regular rate and rhythm, No S3, No S4, No bruits, No diastolic murmur, No edema, No gallop, No irregular rhythm, No jugular venous distention (JVD), No murmurs/extra sounds, No other, No rub, No systolic murmur Gastrointestinal: nl liver, spleen, non-tender, soft, No ascites, No bowel sounds, No distended, No firm, No hepatomegaly, No mass , No other, No rebound or guarding, No splenomegaly, No surgical scars, No tender Musculoskeletal: nl extremities to inspection Extremities: normal pulses, No calf tenderness, No clubbing, No cyanosis, No edema, No other, No palpable cord, No pitting pedal edema, No tenderness Neurological: CAREER BASED INTERVENTION COORDINATOR II-XII intact, nl mental status, nl speech, nl strength Skin: other (right breast lesion) Results Result Diagram: 03/07/17 0451 03/07/17 0440 Results 24 hrs Laboratory Tests Test 03/07/17 04:40 03/07/17 04:51 Sodium Level 136 Potassium Level 4.2 Chloride Level 102 Carbon Dioxide Level 23 Anion Gap 15 Blood Urea Nitrogen 17 Creatinine 1.11 H Glucose Level 121 Calcium Level 9.2 Phosphorus Level 5.1 H Magnesium Level 2.0 Total Bilirubin 0.3 Direct Bilirubin 0.00 Indirect Bilirubin 0.3 Aspartate Amino Transf (AST/SGOT) 15 Alanine Aminotransferase (ALT/SGPT) 29 Alkaline Phosphatase 103 Total Protein 7.0 # Albumin 3.5 Globulin 3.50 H Albumin/Globulin Ratio 1.00 White Blood Count 8.8 # Red Blood Count 4.63 Hemoglobin 11.4 L Hematocrit 37.2 Mean Corpuscular Volume 80.3 L Mean Corpuscular Hemoglobin 24.6 L Mean Corpuscular Hemoglobin Concent 30.6 L Red Cell Distribution Width 15.6 H Platelet Count 499 H Mean Platelet Volume 9.1 Neutrophils % 68.3 Lymphocytes % 20.5 Monocytes % 7.8 Eosinophils % 2.7 Basophils % 0.5 Nucleated Red Blood Cells % 0.0 Neutrophils # 6.0 Lymphocytes # 1.8 Monocytes # 0.7 Eosinophils # 0.2 Basophils # 0.0 Nucleated Red Blood Cells # 0.0 Random Tobramycin Level 2.9 Medications Medications Current Medications Ondansetron HCl (Zofran Inj) 4 mg Q6H PRN IV NAUSEA AND/OR VOMITING; Start at 05:30 Acetaminophen (Tylenol Tab) 650 mg Q6H PRN PO PAIN LEVEL 1-3 OR FEVER; Start at 05:30 Amlodipine Besylate (Norvasc) 10 mg DAILY PO Last administered on 03/07/17 08: 37; Admin Dose 10 MG; Start 03/06/17 at 09:00 Ranitidine HCl (Zantac) 150 mg PRN PO ; Start 03/06/17 at 05:30 Valsartan (Diovan) 160 mg DAILY PO Last administered on 03/07/17 08:36; Admin Dose 160 MG; Start 03/06/17 at 09:00 Morphine Sulfate (morphine) 4 mg Q4H PRN IV SEVERE PAIN LEVEL 7-10 Last administered on 03/06/17 12:55; Admin Dose 4 MG; Start 03/06/17 at 05:38 Hydrochlorothiazide 25 mg 25 mg DAILY PO Last administered on 03/07/17 08:36; Admin Dose 25 MG; Start 03/06/17 at 09:00 Clindamycin HCl/ Dextrose (Cleocin 600 Mg/ D5W (Pmx)) 50 ml @ 50 mls/hr Q8H IVPB Last administered on 03/07/17 08:37; Admin Dose 50 MLS/HR; Start at 08:00 Acetaminophen/ Hydrocodone Bitart ([place] (5/325)) 1 tab Q4H PRN PO pain Last administered on 03/07/17 08:46; Admin Dose 1 TAB; Start 03/06/17 at 15:30 Zolpidem Tartrate 5 mg 5 mg HS PRN PO INSOMNIA Last administered on 03/06/17 23:47; Admin Dose 5 MG; Start 03/06/17 at 17:00 Levofloxacin/ Dextrose (Levaquin 750 Mg/ D5W 150 ml (Pmx)) 150 ml @ 100 mls/hr Q24H IVPB Last administered on 03/07/17 10:39; Admin Dose 100 MLS/HR; Start at 08:00 Pantoprazole (Protonix Tab) 40 mg DAILY@06 PO ; Start 03/07/17 at 21:00 Lorazepam (Ativan) 1 mg Q6H PRN IV ANXIETY Last administered on 03/06/17 22:22 ; Admin Dose 1 MG; Start 03/06/17 at 22:30 JARVIS DACOSTA MD March 07, 2017 15:32
[2017-03-07] MEDS ORDERED: SOD CHLORIDE 0.9% 100 ML ONE (16:06)
[2017-03-07] MEDS ORDERED: IOHEXOL 300MG/ML 150 ML BTL ONE (16:06)
[2017-03-07 19:50] VITALS: BP 118/69; RESP 20
--- NOTE | 2017-03-07 20:09 | RADRPT ---
PROCEDURE: CT Chest with contrast. CLINICAL INDICATION: Right breast palpable lesion. TECHNIQUE: Helical axial sections were obtained through the chest with intravenous contrast enhanc ement. 90 ml of Omnipaque-300 was used for the intravenous contrast. Coronal and sagittal reforma tted images were obtained from the axial source images. Total exam DLP is 651.32 mGy-cm. CTDIvol is 16.69 mGy. One or more of the following dose reduction techniques were used: Automated exposure co ntrol, adjustment of the mA and/or kV according to patient size, use of iterative reconstruction vinnie hnique. COMPARISON: None FINDINGS: The lungs are clear with no airspace or interstitial disease. There is no pulmonary nodule or mass lesion. There is no mediastinal or hilar lymphadenopathy or mass. The thyroid is mildly diffusely enlarged. There is no axillary, supraclavicular, or internal mammary lymphadenopathy. The breasts are only pa rtially included on the images due to patient body habitus. There is no gross abnormality of the vi sualized portion either breast. The thoracic aorta is not dilated. The heart size is normal. There is no pleural effusion or pericardial effusion. Images through the upper abdomen demonstrate normal visualized portions of the liver, spleen, and ad renals. IMPRESSION: 1. Mildly diffusely enlarged thyroid. 2. The breasts only partially included on the images due to patient body habitus. 3. Otherwise unremarkable study. RPTAT: QQ .Maxwell Rice MD, Date Time Electronically viewed and signed by .Maxwell Rice MD, on 03/07/2017 20:09 .R/
--- NOTE | 2017-03-07 20:12 | RADRPT ---
PROCEDURE: CT Brain without contrast. CLINICAL INDICATION: Right breast palpable lesion. Vertigo. TECHNIQUE: A CT of the brain without contrast was performed utilizing axial sections from the skul l base through the vertex. The patient was scanned without intravenous contrast enhancement. Sagitta l and coronal reformatted images were obtained using the data from the axial images. Total exam DLP is 720.23 mGy-cm. CTDIvol is 45.01 mGy. One or more of the following dose reduction techniques we re used: Automated exposure control, adjustment of the mA and/or kV according to patient size, use o f iterative reconstruction technique. COMPARISON: None available FINDINGS: There is normal guerra-white matter differentiation. The ventricles and cisterns are normal. There is no intracranial hemorrhage or space-occupying lesion. There is no skull fracture or lytic lesion. IMPRESSION: 1. Normal noncontrast CT scan of the brain. RPTAT: QQ .Maxwell Rice MD, MD Date Time Electronically viewed and signed by .Maxwell Rice MD, on 03/07/2017 20:12 .R/
[2017-03-07] MEDS: PANTOPRAZOLE (EC) 40 MG TAB PO SCH (21:41)
[2017-03-08] MEDS: ZOLPIDEM 5 MG TAB PO PRN (00:21)
[2017-03-08] MEDS: morphine 4 MG/ML VIAL IV PRN (00:21)
[2017-03-08] MEDS: PANTOPRAZOLE (EC) 40 MG TAB PO SCH (06:49)
[2017-03-08] MEDS: CLINDAMYCIN 600 MG/D5W (PMX) 50 ML IVPB SCH ×3 (07:55→23:37)
[2017-03-08 08:21] VITALS: BP 92/52; RESP 18
[2017-03-08] MEDS: VALSARTAN 160 MG TAB PO SCH (09:19)
[2017-03-08] MEDS: HYDROCHLOROTHIAZIDE 25 MG TAB PO SCH (09:19)
[2017-03-08] MEDS: AMLODIPINE 10 MG TAB PO SCH (09:19)
[2017-03-08] MEDS: LEVOFLOXACIN 750MG/D5W (PMX) 150 ML IVPB SCH (09:19)
[2017-03-08 09:20] VITALS: BP 132/62
[2017-03-08] MEDS: HYDROCODONE/APAP (5/325) TAB PO PRN ×2 (09:29→20:04)
[2017-03-08] MEDS ORDERED: LORAZEPAM 1 MG TAB PO PRN (11:00)
[2017-03-08] MEDS: MECLIZINE 25 MG TAB PO PRN ×2 (11:49→20:06)
--- NOTE | 2017-03-08 13:07 | PN ---
Date/Time of Note Date/Time of Note DATE: 03/08/17 TIME: 13:04 Assessment/Plan Lines/Catheters IV Catheter Type (from [facility]): Saline Lock [facility] in Place (from [facility]): No Assessment/Plan Assessment/Plan [facility] Progress Note Date of Service: 03/08/17 Today's Impression & Plan: Overall stable. Head CT neg and chest CT did not show acute pathology or obvious malignancy of the axilla or chest, but breast views showed only 20% or less of the volume of each breast. Fortunately, no obvious mass (although I'm waiting to review films with radiology regarding a lymph node in the right chest wall). No indication for acute surgical intervention. With above assessment, I've recommended the following for today: 1. Cont medical management and d/c home when medically stable 2. Outpatient bilateral mammogram and breast ultrasound through PCP 3. Continue current wound care to breast skin lesions 4. Follow up with PCP as an outpatient and with us if needed after above 5. Multidisciplinary tumor board presentation for consideration of further w/u and course Thank you again for your great care of this very pleasant patient and wonderful family. If there are any questions, please feel free to call me at [phone]. TOTAL VISIT TIME: 20 minutes of which more than half was spent in [id number] discussion with the patient, possibly including family, as well as coordination of care between multiple physicians and providers. Disclaimer: Inadvertent spelling or grammatical errors are likely due to EHR/ dictation software use and do not reflect on the overall quality of patient care. Updated Clinical Summary: The patient is a very pleasant 51-year-old lady with comorbidities including BMI of 59 and a history of breast cancer and lymphoma in her mother, presenting through the emergency department to [facility] with a right breast mass that appears to be invading through the skin with minimal discharge. Her main reason for admission was vertigo and right breast infection. 03/07/17: Head CT neg and chest CT did not show acute pathology or obvious malignancy of the axilla or chest, but breast views showed only 20% or less of the volume of each breast. Fortunately, no obvious mass (although I'm waiting to review films with radiology regarding a lymph node in the right chest wall). COMORBIDITIES: 1. BMI of 59. 2. History of breast cancer in patient's mother diagnosed in her 40s and lived to mid-60s before passing away from lymphoma, which was a second malignancy in her. No other major malignancy reported in the family including no uterine cancer, ovarian cancer, cervical cancer or breast cancer in male members of the family. 3. Anxiety. 4. Depression. 5. Vertigo. 6. Right ankle fracture status post repair with surgery. 7. Inner ear problem per report of the patient. Status post brain scans (? MRI versus CT) at [facility] approximately 2013. 8. 03/07/17: Head CT neg and chest CT did not show acute pathology or obvious malignancy of the axilla or chest, but breast views showed only 20% or less of the volume of each breast. Fortunately, no obvious mass (although I'm waiting to review films with radiology regarding a lymph node in the right chest wall). Subjective: No major events or complaints; no pain; no n/v/d; no sob or cp; + bowel activity ; minimal activity Objective: Vitals: See below Exam: GENERAL: On exam, the patient was laying in bed and appeared to be comfortable and in no acute distress. SKIN: Skin appears to be pink and feels warm to touch. NEUROLOGIC: Patient is awake, alert, and follows commands appropriately. Exam/Review of Systems Vital Signs Vitals Vital Signs Date Time Temp Pulse Resp B/P Pulse Ox O2 Delivery O2 Flow Rate FiO2 03/08/17 09:20 132/62 03/08/17 08:21 98.0 91 18 93 03/06/17 04:00 Room Air Intake and Output 03/07/17 03/07/17 03/08/17 15:00 23:00 07:00 Intake Total 200 ml 1290 ml 390 ml Output Total 800 ml Balance 200 ml 1290 ml -410 ml Results Result Diagram: 03/07/17 0451 03/07/17 0440 SHIRA GOODSON M.D. March 08, 2017 13:07
--- NOTE | 2017-03-08 16:16 | PN ---
Date/Time of Note Date/Time of Note DATE: 03/08/17 TIME: 16:13 Assessment/Plan VTE Prophylaxis VTE Prophylaxis Intervention: SCD's Lines/Catheters IV C[facility]ter Type (from [facility] Saline Lock Urinary Cath still in place: No Assessment/Plan Chief Complaint/Hosp Course Assessment and plan 1. Right breast sebaceous cyst with cellulitis. Continue antibiotics. Appears to be improving at present. Continue wound care. 2. Hypertensive hypertension. Continue antihypertensives and adjust as needed 3. History of chronic vertigo. Continue meclizine 4. Morbid obesity. Weight reduction was advised 5. Acute kidney injury. Start on slow IV hydration. Follow-up on renal panel. Disposition and plan: Continue with wound care. Continue antibiotics. Noted with acute kidney injury. Start on IV fluids. Monitor renal panel. Discharge when medically stable and cleared by consultants Discussed plan of care with Dr. Sinclair Problems: Subjective 24 Hr Interval Summary Free Text/Dictation reports feeling weak Exam/Review of Systems Vital Signs Vitals Vital Signs Date Time Temp Pulse Resp B/P Pulse Ox O2 Delivery O2 Flow Rate FiO2 03/08/17 09:20 132/62 03/08/17 08:21 98.0 91 18 93 03/06/17 04:00 Room Air Intake and Output 03/07/17 03/07/17 03/08/17 15:00 23:00 07:00 Intake Total 200 ml 1290 ml 390 ml Output Total 800 ml Balance 200 ml 1290 ml -410 ml Exam Constitutional: alert, obese (morbidly), oriented Psych: nl mood/affect Head: normocephalic Neck: No jvd Respiratory: clear to auscultation, normal air movement Cardiovascular: regular rate and rhythm Gastrointestinal: non-tender, soft Genitourinary - Female: other (noted with wound on breast ) Neurological: MOMD TEACHER II-XII intact, nl mental status, nl speech Skin: other (wound noted on breast on the right ) Results Result Diagram: 03/07/17 0451 03/07/17 0440 Results 24 hrs Laboratory Tests Test 03/08/17 14:03 Vitamin D 1,25-Dihydroxy 16.4 L Medications Medications Current Medications Ondansetron HCl (Zofran Inj) 4 mg Q6H PRN IV NAUSEA AND/OR VOMITING; Start at 05:30 Acetaminophen (Tylenol Tab) 650 mg Q6H PRN PO PAIN LEVEL 1-3 OR FEVER; Start at 05:30 Amlodipine Besylate (Norvasc) 10 mg DAILY PO Last administered on 03/08/17 09: 19; Admin Dose 10 MG; Start 03/06/17 at 09:00 Ranitidine HCl (Zantac) 150 mg PRN PO ; Start 03/06/17 at 05:30 Valsartan (Diovan) 160 mg DAILY PO Last administered on 03/08/17 09:19; Admin Dose 160 MG; Start 03/06/17 at 09:00 Morphine Sulfate (morphine) 4 mg Q4H PRN IV SEVERE PAIN LEVEL 7-10 Last administered on 03/08/17 00:21; Admin Dose 4 MG; Start 03/06/17 at 05:38 Hydrochlorothiazide 25 mg 25 mg DAILY PO Last administered on 03/08/17 09:19; Admin Dose 25 MG; Start 03/06/17 at 09:00 Clindamycin HCl/ Dextrose (Cleocin 600 Mg/ D5W (Pmx)) 50 ml @ 50 mls/hr Q8H IVPB Last administered on 03/08/17 15:29; Admin Dose 50 MLS/HR; Start at 08:00 Acetaminophen/ Hydrocodone Bitart ([place] (5/325)) 1 tab Q4H PRN PO pain Last administered on 03/08/17 09:29; Admin Dose 1 TAB; Start 03/06/17 at 15:30 Zolpidem Tartrate 5 mg 5 mg HS PRN PO INSOMNIA Last administered on 03/08/17 00:21; Admin Dose 5 MG; Start 03/06/17 at 17:00 Levofloxacin/ Dextrose (Levaquin 750 Mg/ D5W 150 ml (Pmx)) 150 ml @ 100 mls/hr Q24H IVPB Last administered on 03/08/17 09:19; Admin Dose 100 MLS/HR; Start at 08:00 Pantoprazole (Protonix Tab) 40 mg DAILY@06 PO Last administered on 03/08/17 06 :49; Admin Dose 40 MG; Start 03/07/17 at 21:00 Meclizine HCl (Antivert) 25 mg Q6 PRN PO VERTIGO Last administered on 5/27/ 17at 11:49; Admin Dose 25 MG; Start 03/08/17 at 11:00 Lorazepam (Ativan) 1 mg Q6H PRN PO ANXIETY; Start 03/08/17 at 11:00 Cholecalciferol 1000 unit 1,000 unit DAILY PO ; Start 03/08/17 at 16:30 Sodium Chloride (NS) 1,000 ml @ 70 mls/hr [id number] IV ; Start 03/08/17 at 16:30 GUS VARGAS March 08, 2017 16:16
[2017-03-08] MEDS: CHOLECALCIFEROL 1,000 UNIT TAB PO SCH (16:54)
[2017-03-08] MEDS: SOD CHLORIDE 0.9% 1,000 ML IV SCH (16:55)
[2017-03-08 20:49] VITALS: BP 129/69; RESP 18
[2017-03-09] MEDS: ZOLPIDEM 5 MG TAB PO PRN ×2 (00:05→23:37)
[2017-03-09] MEDS: HYDROCODONE/APAP (5/325) TAB PO PRN ×4 (00:05→23:37)
[2017-03-09 06:23] LABS: ADD SCAN DIFF NO
[2017-03-09] MEDS: PANTOPRAZOLE (EC) 40 MG TAB PO SCH (06:25)
[2017-03-09 06:43] LABS: BASOPHIL # 0.1 10^3/ul (0.0-0.1); BASOPHILS % 0.5 % (0.0-2.0); EOSINOPHILS # 0.4 10^3/ul (0.0-0.5); EOSINOPHILS % 3.1 % (0.0-7.0); HEMATOCRIT 35.4 % (37.0-47.0); HEMOGLOBIN 10.7 g/dl (12.0-16.0); LYMPHOCYTES # 2.8 10^3/ul (0.8-2.9); LYMPHOCYTES % 25.2 % (15.0-51.0); MEAN CORPUSCULAR HGB CONC 30.2 g/dl (32.0-37.0); MEAN CORPUSCULAR VOLUME 79.4 fl (82.0-101.0); MEAN PLATELET VOLUME 9.8 fl (7.4-10.4); MONOCYTE # 0.8 10^3/ul (0.3-0.9); MONOCYTES % 6.7 % (0.0-11.0); NEUTROPHIL # 7.2 10^3/ul (1.6-7.5); NEUTROPHILS % 64.2 % (39.0-77.0); PLATELET COUNT 480 10^3/UL (140-415); RED BLOOD COUNT 4.46 10^6/ul (4.20-5.40); RED CELL DISTRIBUTION WIDTH 15.8 % (11.5-14.5); WHITE BLOOD COUNT 11.2 10^3/ul (4.8-10.8)
[2017-03-09 06:57] LABS: CALCIUM 8.7 mg/dl (8.4-10.2); CREATININE 0.94 mg/dl (0.44-1.00); POTASSIUM 3.9 mmol/L (3.5-5.1)
[2017-03-09] MEDS: CLINDAMYCIN 600 MG/D5W (PMX) 50 ML IVPB SCH ×3 (07:38→23:36)
[2017-03-09] MEDS: SOD CHLORIDE 0.9% 1,000 ML IV SCH ×2 (08:01→18:42)
[2017-03-09 08:03] VITALS: BP 98/55; RESP 17
[2017-03-09] MEDS: CHOLECALCIFEROL 1,000 UNIT TAB PO SCH (08:51)
[2017-03-09] MEDS: AMLODIPINE 10 MG TAB PO SCH (08:51)
[2017-03-09] MEDS: VALSARTAN 160 MG TAB PO SCH (08:52)
[2017-03-09] MEDS: LEVOFLOXACIN 750MG/D5W (PMX) 150 ML IVPB SCH (08:52)
[2017-03-09] MEDS: HYDROCHLOROTHIAZIDE 25 MG TAB PO SCH (08:52)
--- NOTE | 2017-03-09 09:58 | PN ---
Date/Time of Note Date/Time of Note DATE: 03/09/17 TIME: 09:55 Assessment/Plan VTE Prophylaxis VTE Prophylaxis Intervention: SCD's Lines/Catheters IV [facility]from [facility] Saline Lock Urinary Cath still in place: No Assessment/Plan Chief Complaint/Hosp Course Assessment and plan 1. Right breast sebaceous cyst with cellulitis. Continue antibiotics. Appears to be improving at present. Continue wound care. 2. Hypertensive urgency. Continue antihypertensives and adjust as needed 3. History of chronic vertigo. Continue meclizine. Slowly improved 4. Morbid obesity. Weight reduction was advised 5. Acute kidney injury. Improved. Will monitor 5. Enlarged thyroid. Follow-up ultrasound of the thyroid as well as thyroid profile Disposition and plan: Follow-up on thyroid ultrasound as well as thyroid profile. Continue the meclizine for dizziness. Discussed plan of care with Dr. Sinclair Problems: Subjective 24 Hr Interval Summary Free Text/Dictation Still reports feeling slightly dizzy at times. Exam/Review of Systems Vital Signs Vitals Vital Signs Date Time Temp Pulse Resp B/P Pulse Ox O2 Delivery O2 Flow Rate FiO2 03/09/17 08:03 98.0 95 17 98/55 98 03/06/17 04:00 Room Air Intake and Output 03/08/17 03/08/17 03/09/17 15:00 23:00 07:00 Intake Total 200 ml 790 ml 300 ml Balance 200 ml 790 ml 300 ml Exam Constitutional: alert, obese (Morbidly), oriented Psych: nl mood/affect Head: normocephalic Neck: supple, No jvd Respiratory: clear to auscultation, normal air movement Cardiovascular: regular rate and rhythm Gastrointestinal: non-tender, soft Neurological: FRUIT BUYING GRADER II-XII intact, nl mental status, nl speech Skin: other (Noted with right breast ulcerative wound, less erythema. No obvious drainage) Results Result Diagram: 03/09/17 0444 03/09/17 0444 Results 24 hrs Laboratory Tests Test 03/08/17 14:03 03/09/17 04:44 Vitamin D 1,25-Dihydroxy 16.4 L White Blood Count 11.2 #H Red Blood Count 4.46 Hemoglobin 10.7 L Hematocrit 35.4 L Mean Corpuscular Volume 79.4 L Mean Corpuscular Hemoglobin 24.0 L Mean Corpuscular Hemoglobin Concent 30.2 L Red Cell Distribution Width 15.8 H Platelet Count 480 H Mean Platelet Volume 9.8 Neutrophils % 64.2 Lymphocytes % 25.2 Monocytes % 6.7 Eosinophils % 3.1 Basophils % 0.5 Nucleated Red Blood Cells % 0.0 Neutrophils # 7.2 Lymphocytes # 2.8 Monocytes # 0.8 Eosinophils # 0.4 Basophils # 0.1 Nucleated Red Blood Cells # 0.0 Sodium Level 138 Potassium Level 3.9 Chloride Level 103 Carbon Dioxide Level 24 Anion Gap 15 Blood Urea Nitrogen 15 Creatinine 0.94 Glucose Level 101 Calcium Level 8.7 Medications Medications Current Medications Ondansetron HCl (Zofran Inj) 4 mg Q6H PRN IV NAUSEA AND/OR VOMITING; Start at 05:30 Acetaminophen (Tylenol Tab) 650 mg Q6H PRN PO PAIN LEVEL 1-3 OR FEVER; Start at 05:30 Amlodipine Besylate (Norvasc) 10 mg DAILY PO Last administered on 03/09/17 08: 51; Admin Dose 10 MG; Start 03/06/17 at 09:00 Ranitidine HCl (Zantac) 150 mg PRN PO ; Start 03/06/17 at 05:30 Valsartan (Diovan) 160 mg DAILY PO Last administered on 03/09/17 08:52; Admin Dose 160 MG; Start 03/06/17 at 09:00 Morphine Sulfate (morphine) 4 mg Q4H PRN IV SEVERE PAIN LEVEL 7-10 Last administered on 03/08/17 00:21; Admin Dose 4 MG; Start 03/06/17 at 05:38 Hydrochlorothiazide 25 mg 25 mg DAILY PO Last administered on 03/09/17 08:52; Admin Dose 25 MG; Start 03/06/17 at 09:00 Clindamycin HCl/ Dextrose (Cleocin 600 Mg/ D5W (Pmx)) 50 ml @ 50 mls/hr Q8H IVPB Last administered on 03/09/17 07:38; Admin Dose 50 MLS/HR; Start at 08:00 Acetaminophen/ Hydrocodone Bitart ([place] (5/325)) 1 tab Q4H PRN PO pain Last administered on 03/09/17 07:51; Admin Dose 1 TAB; Start 03/06/17 at 15:30 Zolpidem Tartrate 5 mg 5 mg HS PRN PO INSOMNIA Last administered on 03/09/17 00:05; Admin Dose 5 MG; Start 03/06/17 at 17:00 Levofloxacin/ Dextrose (Levaquin 750 Mg/ D5W 150 ml (Pmx)) 150 ml @ 100 mls/hr Q24H IVPB Last administered on 03/09/17 08:52; Admin Dose 100 MLS/HR; Start at 08:00 Pantoprazole (Protonix Tab) 40 mg DAILY@06 PO Last administered on 03/09/17 06 :25; Admin Dose 40 MG; Start 03/07/17 at 21:00 Meclizine HCl (Antivert) 25 mg Q6 PRN PO VERTIGO Last administered on 20:06; Admin Dose 25 MG; Start 03/08/17 at 11:00 Lorazepam (Ativan) 1 mg Q6H PRN PO ANXIETY; Start 03/08/17 at 11:00 Cholecalciferol 1000 unit 1,000 unit DAILY PO Last administered on 03/09/17 08 :51; Admin Dose 1,000 UNIT; Start 03/08/17 at 16:30 Sodium Chloride (NS) 1,000 ml @ 70 mls/hr [id number] IV Last administered on 03/08 16:55; Admin Dose 70 MLS/HR; Start 03/08/17 at 16:30 GUS VARGAS March 09, 2017 09:58 GUS VARGAS March 09, 2017 09:58
[2017-03-09 13:55] LABS: T3 UPTAKE 36.3 % (23.5-40.5)
[2017-03-09 19:53] VITALS: BP 103/65; RESP 20
[2017-03-10 05:15] LABS: ADD SCAN DIFF NO
[2017-03-10 05:20] LABS: BASOPHIL # 0.1 10^3/ul (0.0-0.1); BASOPHILS % 0.8 % (0.0-2.0); EOSINOPHILS # 0.4 10^3/ul (0.0-0.5); EOSINOPHILS % 3.5 % (0.0-7.0); HEMATOCRIT 35.2 % (37.0-47.0); HEMOGLOBIN 10.9 g/dl (12.0-16.0); LYMPHOCYTES # 2.4 10^3/ul (0.8-2.9); LYMPHOCYTES % 24.4 % (15.0-51.0); MEAN CORPUSCULAR HEMOGLOBIN 24.7 pg (29.0-33.0); MEAN CORPUSCULAR VOLUME 79.8 fl (82.0-101.0); MEAN PLATELET VOLUME 9.1 fl (7.4-10.4); MONOCYTE # 0.9 10^3/ul (0.3-0.9); MONOCYTES % 8.6 % (0.0-11.0); NEUTROPHIL # 6.2 10^3/ul (1.6-7.5); NEUTROPHILS % 62.4 % (39.0-77.0); PLATELET COUNT 459 10^3/UL (140-415); RED BLOOD COUNT 4.41 10^6/ul (4.20-5.40); RED CELL DISTRIBUTION WIDTH 15.9 % (11.5-14.5); WHITE BLOOD COUNT 9.9 10^3/ul (4.8-10.8)
[2017-03-10 06:00] LABS: CALCIUM 8.7 mg/dl (8.4-10.2); CREATININE 0.92 mg/dl (0.44-1.00); POTASSIUM 3.7 mmol/L (3.5-5.1)
[2017-03-10] MEDS: PANTOPRAZOLE (EC) 40 MG TAB PO SCH (06:48)
[2017-03-10 07:30] VITALS: BP 100/72; RESP 18
[2017-03-10] MEDS: LEVOFLOXACIN 750MG/D5W (PMX) 150 ML IVPB SCH (07:36)
[2017-03-10] MEDS: CLINDAMYCIN 600 MG/D5W (PMX) 50 ML IVPB SCH ×3 (07:36→23:45)
[2017-03-10] MEDS: HYDROCODONE/APAP (5/325) TAB PO PRN ×2 (07:46→22:49)
[2017-03-10] MEDS: HYDROCHLOROTHIAZIDE 25 MG TAB PO SCH (08:38)
[2017-03-10] MEDS: VALSARTAN 160 MG TAB PO SCH (08:38)
[2017-03-10] MEDS: CHOLECALCIFEROL 1,000 UNIT TAB PO SCH (08:38)
[2017-03-10] MEDS: AMLODIPINE 10 MG TAB PO SCH (08:39)
--- NOTE | 2017-03-10 11:33 | RADRPT ---
PROCEDURE: US Thyroid. CLINICAL INDICATION: Enlarged thyroid gland. TECHNIQUE: Transverse and sagittal imaging of the thyroid gland was performed with a high frequency linear arra y transducer. Color-flow interrogation was performed as well. The images were reviewed on a PACS [address]. COMPARISON: Chest CT dated 03/07/2017. FINDINGS: The right lobe of the thyroid gland measures 4.9 x 2.9 x 2.5 cm. The left lobe of the thyroid gland measures 3.3 x 2.8 x 2.6 cm. The isthmus measures 4 mm in thickness. There is a heterogeneous solid nodule in the right thyroid lobe measuring 2.9 x 2.6 x 2.2 cm, which appears to be associated with microcalcifications. There is also a 1.1 x 0.5 cm hypoechoic nodule at the inferior right thyroid lobe. IMPRESSION: 1. Suspicious solid nodule in the right thyroid lobe measuring 2.9 cm with associated microcalcific ations. Ultrasound-guided FNA is recommended for further evaluation. RPTAT: EE .Vidal Barrera MD, MD Date Time Electronically viewed and signed by .Vidal Barrera MD, MD on 03/10/2017 11:32 .P/
[2017-03-10] MEDS: SOD CHLORIDE 0.9% 1,000 ML IV SCH (11:37)
[2017-03-10] MEDS: morphine 4 MG/ML VIAL IV PRN (11:38)
[2017-03-10] MEDS: MECLIZINE 25 MG TAB PO PRN (12:43)
--- NOTE | 2017-03-10 15:59 | PN ---
Date/Time of Note Date/Time of Note DATE: 03/10/17 TIME: 15:52 Assessment/Plan VTE Prophylaxis VTE Prophylaxis Intervention: SCD's Lines/Catheters IV [facility] (from [facility]): Peripheral IV Urinary Cath still in place: No Assessment/Plan Assessment/Plan 1. Right breast sebaceous cyst with cellulitis, on antibiotics(levaquin/ clindamycin) 2. Thyroid nodule, FNA per radiology 3. Hypertension, controlled 4. Chronic vertigo, currently stable. 5. Morbid obesity. Subjective 24 Hr Interval Summary Free Text/Dictation afebrile. Exam/Review of Systems Vital Signs Vitals Vital Signs Date Time Temp Pulse Resp B/P Pulse Ox O2 Delivery O2 Flow Rate FiO2 03/10/17 07:30 97.6 94 18 100/72 95 Intake and Output 03/09/17 03/09/17 03/10/17 15:00 23:00 07:00 Intake Total 150 ml 2680 ml 960 ml Output Total 600 ml Balance 150 ml 2680 ml 360 ml Exam Constitutional: alert, oriented, well developed Psych: nl mood/affect, no complaints Head: atraumatic, normocephalic Eyes: EOMI, PERRL, nl conjunctiva, nl lids ENMT: nl external ears & nose, nl lips & teeth, nl nasal mucosa & septum Neck: non-tender, supple Respiratory: clear to auscultation, normal air movement, No congested cough, No crackles/rales, No diminished breath sounds, No intercostal retraction, No labored breathing, No other, No respirations, No tactile fremitus, No wheezing Cardiovascular: nl pulses, regular rate and rhythm, No S3, No S4, No bruits, No diastolic murmur, No edema, No gallop, No irregular rhythm, No jugular venous distention (JVD), No murmurs/extra sounds, No other, No rub, No systolic murmur Gastrointestinal: nl liver, spleen, non-tender, soft, No ascites, No bowel sounds, No distended, No firm, No hepatomegaly, No mass , No other, No rebound or guarding, No splenomegaly, No surgical scars, No tender Musculoskeletal: nl extremities to inspection, nl gait and stance, No joint tenderness, No muscle tone, No muscle weakness, No other, No range of motion, No spine non-tender, No swelling Extremities: normal pulses, No calf tenderness, No clubbing, No cyanosis, No edema, No other, No palpable cord, No pitting pedal edema, No tenderness Neurological: COMMERCIAL DRIVER II-XII intact, nl mental status, nl speech, nl strength Lymph: nl lymph nodes Results Result Diagram: 03/10/17 0500 03/10/17 0500 Results 24 hrs Laboratory Tests Test 03/10/17 05:00 White Blood Count 9.9 Red Blood Count 4.41 Hemoglobin 10.9 L Hematocrit 35.2 L Mean Corpuscular Volume 79.8 L Mean Corpuscular Hemoglobin 24.7 L Mean Corpuscular Hemoglobin Concent 31.0 L Red Cell Distribution Width 15.9 H Platelet Count 459 H Mean Platelet Volume 9.1 Neutrophils % 62.4 Lymphocytes % 24.4 Monocytes % 8.6 Eosinophils % 3.5 Basophils % 0.8 Nucleated Red Blood Cells % 0.0 Neutrophils # 6.2 Lymphocytes # 2.4 Monocytes # 0.9 Eosinophils # 0.4 Basophils # 0.1 Nucleated Red Blood Cells # 0.0 Sodium Level 139 Potassium Level 3.7 Chloride Level 105 Carbon Dioxide Level 24 Anion Gap 14 Blood Urea Nitrogen 15 Creatinine 0.92 Glucose Level 103 Calcium Level 8.7 Medications Medications Current Medications Ondansetron HCl (Zofran Inj) 4 mg Q6H PRN IV NAUSEA AND/OR VOMITING; Start at 05:30 Acetaminophen (Tylenol Tab) 650 mg Q6H PRN PO PAIN LEVEL 1-3 OR FEVER; Start at 05:30 Amlodipine Besylate (Norvasc) 10 mg DAILY PO Last administered on 03/09/17 08: 51; Admin Dose 10 MG; Start 03/06/17 at 09:00 Ranitidine HCl (Zantac) 150 mg PRN PO ; Start 03/06/17 at 05:30 Valsartan (Diovan) 160 mg DAILY PO Last administered on 03/09/17 08:52; Admin Dose 160 MG; Start 03/06/17 at 09:00 Morphine Sulfate (morphine) 4 mg Q4H PRN IV SEVERE PAIN LEVEL 7-10 Last administered on 03/10/17 11:38; Admin Dose 4 MG; Start 03/06/17 at 05:38 Hydrochlorothiazide 25 mg 25 mg DAILY PO Last administered on 03/09/17 08:52; Admin Dose 25 MG; Start 03/06/17 at 09:00 Clindamycin HCl/ Dextrose (Cleocin 600 Mg/ D5W (Pmx)) 50 ml @ 50 mls/hr Q8H IVPB Last administered on 03/10/17 07:36; Admin Dose 50 MLS/HR; Start at 08:00 Acetaminophen/ Hydrocodone Bitart ([place] (5/325)) 1 tab Q4H PRN PO pain Last administered on 03/10/17 07:46; Admin Dose 1 TAB; Start 03/06/17 at 15:30 Zolpidem Tartrate 5 mg 5 mg HS PRN PO INSOMNIA Last administered on 03/09/17 23:37; Admin Dose 5 MG; Start 03/06/17 at 17:00 Levofloxacin/ Dextrose (Levaquin 750 Mg/ D5W 150 ml (Pmx)) 150 ml @ 100 mls/hr Q24H IVPB Last administered on 03/10/17 07:36; Admin Dose 100 MLS/HR; Start at 08:00 Pantoprazole (Protonix Tab) 40 mg DAILY@06 PO Last administered on 03/10/17 06 :48; Admin Dose 40 MG; Start 03/07/17 at 21:00 Meclizine HCl (Antivert) 25 mg Q6 PRN PO VERTIGO Last administered on 12:43; Admin Dose 25 MG; Start 03/08/17 at 11:00 Lorazepam (Ativan) 1 mg Q6H PRN PO ANXIETY; Start 03/08/17 at 11:00 Cholecalciferol 1000 unit 1,000 unit DAILY PO Last administered on 03/10/17 08 :38; Admin Dose 1,000 UNIT; Start 03/08/17 at 16:30 Sodium Chloride (NS) 1,000 ml @ 70 mls/hr [id number] IV Last administered on 03/10 11:37; Admin Dose 70 MLS/HR; Start 03/08/17 at 16:30 JARVIS DACOSTA MD March 10, 2017 15:59
[2017-03-10 20:34] VITALS: BP 110/64; RESP 20
[2017-03-10] MEDS: ZOLPIDEM 5 MG TAB PO PRN (22:49)
[2017-03-11] MEDS: SOD CHLORIDE 0.9% 1,000 ML IV SCH ×2 (01:42→08:43)
[2017-03-11] MEDS: PANTOPRAZOLE (EC) 40 MG TAB PO SCH (05:57)
[2017-03-11 06:09] LABS: ADD SCAN DIFF NO
[2017-03-11 06:24] LABS: BASOPHIL # 0.1 10^3/ul (0.0-0.1); BASOPHILS % 0.4 % (0.0-2.0); EOSINOPHILS # 0.3 10^3/ul (0.0-0.5); EOSINOPHILS % 2.5 % (0.0-7.0); HEMATOCRIT 34.2 % (37.0-47.0); HEMOGLOBIN 10.4 g/dl (12.0-16.0); LYMPHOCYTES # 2.7 10^3/ul (0.8-2.9); LYMPHOCYTES % 21.7 % (15.0-51.0); MEAN CORPUSCULAR HEMOGLOBIN 24.2 pg (29.0-33.0); MEAN CORPUSCULAR HGB CONC 30.4 g/dl (32.0-37.0); MEAN CORPUSCULAR VOLUME 79.7 fl (82.0-101.0); MEAN PLATELET VOLUME 9.4 fl (7.4-10.4); MONOCYTE # 0.9 10^3/ul (0.3-0.9); MONOCYTES % 7.3 % (0.0-11.0); NEUTROPHIL # 8.5 10^3/ul (1.6-7.5); NEUTROPHILS % 67.7 % (39.0-77.0); PLATELET COUNT 437 10^3/UL (140-415); RED BLOOD COUNT 4.29 10^6/ul (4.20-5.40); RED CELL DISTRIBUTION WIDTH 15.8 % (11.5-14.5); WHITE BLOOD COUNT 12.6 10^3/ul (4.8-10.8)
[2017-03-11 06:38] LABS: POTASSIUM 3.8 mmol/L (3.5-5.1)
[2017-03-11 06:40] LABS: CREATININE 0.79 mg/dl (0.44-1.00)
[2017-03-11 06:41] LABS: CALCIUM 8.3 mg/dl (8.4-10.2)
[2017-03-11 08:00] VITALS: BP 108/53; RESP 18
[2017-03-11] MEDS: LEVOFLOXACIN 750MG/D5W (PMX) 150 ML IVPB SCH (08:35)
[2017-03-11] MEDS: MECLIZINE 25 MG TAB PO PRN ×2 (08:36→15:49)
[2017-03-11] MEDS: HYDROCODONE/APAP (5/325) TAB PO PRN ×3 (08:36→23:16)
[2017-03-11] MEDS: CLINDAMYCIN 600 MG/D5W (PMX) 50 ML IVPB SCH ×2 (08:36→15:49)
[2017-03-11] MEDS: HYDROCHLOROTHIAZIDE 25 MG TAB PO SCH (08:37)
[2017-03-11] MEDS: CHOLECALCIFEROL 1,000 UNIT TAB PO SCH (08:37)
[2017-03-11] MEDS: VALSARTAN 160 MG TAB PO SCH (08:37)
[2017-03-11] MEDS: AMLODIPINE 10 MG TAB PO SCH (08:38)
[2017-03-11 10:23] LABS: INR 0.97; PARTIAL THROMBOPLASTIN TIME 30.3 Sec (25.0-35.0); PROTIME 12.9 Sec (12.2-14.2)
[2017-03-11] MEDS: LOPERAMIDE 2 MG CAP PO PRN ×2 (11:43→15:50)
--- NOTE | 2017-03-11 15:04 | RADRPT ---
PROCEDURE: Ultrasound guided thyroid biopsy CLINICAL INDICATION: Thyroid nodule/mass TECHNIQUE: Multiple sonographic images of the thyroid were obtained utilizing a linear array trans ducer with grayscale and color-flow and a Doppler imaging. The images were reviewed on a [employer] PACS workstation. The patient was placed in the supine position and the neck was hyperextended. A site in the patient 's RIGHT neck was selected and marked. 1% lidocaine was utilized for local anesthesia. A 25 gauge spinal needle was advanced into the nodule and 3 FNA aspirates were obtained. The samples were evaluated by pathology and deemed to be of diagnostic quality. 8 20-gauge core biop sy was then obtained. A sterile dressing was applied. The patient tolerated the procedure well. COMPARISON: Thyroid ultrasound from 03/09/2017 FINDINGS: 2.9 cm well circumscribed heterogeneously hypoechoic right thyroid nodule. IMPRESSION: Uncomplicated ultrasound-guided thyroid biopsy, as above. RPTAT: EE Physician Teresa Date Time Electronically viewed and signed by Physician Teresa on 03/11/2017 15:03 /
[2017-03-11] MEDS ORDERED: LIDOCAINE 1% (MPF) 5 ML VIAL ONE (15:42)
[2017-03-11 15:59] VITALS: BP 118/59; PULSE 100
--- NOTE | 2017-03-11 16:56 | PN ---
Date/Time of Note Date/Time of Note DATE: 03/11/17 TIME: 16:54 Assessment/Plan VTE Prophylaxis VTE Prophylaxis Intervention: SCD's Lines/Catheters IV Catheter Type (from Nrsg): Peripheral IV Urinary Cath still in place: No Assessment/Plan Assessment/Plan 1. Right breast sebaceous cyst with cellulitis, on antibiotics(levaquin/ clindamycin) 2. Thyroid nodule, s/p US guided biopsy 3. Hypertension, controlled 4. Chronic vertigo, currently stable. 5. Morbid obesity. SCD for DVT prophylaxis IVF Pain control Subjective 24 Hr Interval Summary Free Text/Dictation pain controlled, Plan for FNA of thyroid nodule, today Exam/Review of Systems Vital Signs Vitals Vital Signs Date Time Temp Pulse Resp B/P Pulse Ox O2 Delivery O2 Flow Rate FiO2 03/11/17 15:59 98.1 100 118/59 03/11/17 08:00 18 95 Intake and Output 03/10/17 03/10/17 03/11/17 14:59 22:59 06:59 Intake Total 780 ml 870 ml 660 ml Balance 780 ml 870 ml 660 ml Exam Constitutional: alert, obese (morbidly), oriented Psych: nl mood/affect Head: normocephalic Neck: No jvd Respiratory: clear to auscultation, normal air movement Cardiovascular: regular rate and rhythm Gastrointestinal: non-tender, soft Genitourinary - Female: other (noted with wound on breast ) Neurological: CONTENT ANALYST II-XII intact, nl mental status, nl speech Skin: other (wound noted on breast on the right ) Results Result Diagram: 03/11/17 0500 03/11/17 0500 Results 24 hrs Laboratory Tests Test 03/11/17 05:00 03/11/17 09:40 White Blood Count 12.6 #H Red Blood Count 4.29 Hemoglobin 10.4 L Hematocrit 34.2 L Mean Corpuscular Volume 79.7 L Mean Corpuscular Hemoglobin 24.2 L Mean Corpuscular Hemoglobin Concent 30.4 L Red Cell Distribution Width 15.8 H Platelet Count 437 H Mean Platelet Volume 9.4 Neutrophils % 67.7 Lymphocytes % 21.7 Monocytes % 7.3 Eosinophils % 2.5 Basophils % 0.4 Nucleated Red Blood Cells % 0.0 Neutrophils # 8.5 H Lymphocytes # 2.7 Monocytes # 0.9 Eosinophils # 0.3 Basophils # 0.1 Nucleated Red Blood Cells # 0.0 Sodium Level 138 Potassium Level 3.8 Chloride Level 110 Carbon Dioxide Level 26 Anion Gap 6 #L Blood Urea Nitrogen 13 Creatinine 0.79 Glucose Level 93 Hemoglobin A1c 5.8 Calcium Level 8.3 L Prothrombin Time 12.9 Prothrombin Time Ratio 1.0 INR International Normalized Ratio 0.97 Activated Partial Thromboplast Time 30.3 Medications Medications Current Medications Ondansetron HCl (Zofran Inj) 4 mg Q6H PRN IV NAUSEA AND/OR VOMITING; Start at 05:30 Acetaminophen (Tylenol Tab) 650 mg Q6H PRN PO PAIN LEVEL 1-3 OR FEVER; Start at 05:30 Amlodipine Besylate (Norvasc) 10 mg DAILY PO Last administered on 03/11/17 08: 38; Admin Dose 10 MG; Start 03/06/17 at 09:00 Ranitidine HCl (Zantac) 150 mg PRN PO ; Start 03/06/17 at 05:30 Valsartan (Diovan) 160 mg DAILY PO Last administered on 03/11/17 08:37; Admin Dose 160 MG; Start 03/06/17 at 09:00 Morphine Sulfate (morphine) 4 mg Q4H PRN IV SEVERE PAIN LEVEL 7-10 Last administered on 03/10/17 11:38; Admin Dose 4 MG; Start 03/06/17 at 05:38 Hydrochlorothiazide 25 mg 25 mg DAILY PO Last administered on 03/11/17 08:37; Admin Dose 25 MG; Start 03/06/17 at 09:00 Clindamycin HCl/ Dextrose (Cleocin 600 Mg/ D5W (Pmx)) 50 ml @ 50 mls/hr Q8H IVPB Last administered on 03/11/17 15:49; Admin Dose 50 MLS/HR; Start at 08:00 Acetaminophen/ Hydrocodone Bitart ([place] (5/325)) 1 tab Q4H PRN PO pain Last administered on 03/11/17 15:50; Admin Dose 1 TAB; Start 03/06/17 at 15:30 Zolpidem Tartrate 5 mg 5 mg HS PRN PO INSOMNIA Last administered on 03/10/17 22:49; Admin Dose 5 MG; Start 03/06/17 at 17:00 Levofloxacin/ Dextrose (Levaquin 750 Mg/ D5W 150 ml (Pmx)) 150 ml @ 100 mls/hr Q24H IVPB Last administered on 03/11/17 08:35; Admin Dose 100 MLS/HR; Start at 08:00 Pantoprazole (Protonix Tab) 40 mg DAILY@06 PO Last administered on 03/11/17 05 :57; Admin Dose 40 MG; Start 03/07/17 at 21:00 Meclizine HCl (Antivert) 25 mg Q6 PRN PO VERTIGO Last administered on 15:49; Admin Dose 25 MG; Start 03/08/17 at 11:00 Lorazepam (Ativan) 1 mg Q6H PRN PO ANXIETY; Start 03/08/17 at 11:00 Cholecalciferol 1000 unit 1,000 unit DAILY PO Last administered on 03/11/17 08 :37; Admin Dose 1,000 UNIT; Start 03/08/17 at 16:30 Sodium Chloride (NS) 1,000 ml @ 70 mls/hr [id number] IV Last administered on 03/11 08:43; Admin Dose 70 MLS/HR; Start 03/08/17 at 16:30 Loperamide HCl (Imodium Cap) 2 mg TID PRN PO DIARRHEA Last administered on 03/11 15:50; Admin Dose 2 MG; Start 03/10/17 at 23:00 YANI WINSLOW MD March 11, 2017 16:56
[2017-03-11] MEDS: ZOLPIDEM 5 MG TAB PO PRN (22:32)
[2017-03-12] MEDS: CLINDAMYCIN 600 MG/D5W (PMX) 50 ML IVPB SCH ×3 (00:06→08:25)
[2017-03-12] MEDS: PANTOPRAZOLE (EC) 40 MG TAB PO SCH (06:05)
[2017-03-12 06:50] LABS: ADD SCAN DIFF NO
[2017-03-12] MEDS: SOD CHLORIDE 0.9% 1,000 ML IV SCH (06:52)
[2017-03-12 06:54] LABS: BASOPHIL # 0.1 10^3/ul (0.0-0.1); BASOPHILS % 0.6 % (0.0-2.0); EOSINOPHILS # 0.3 10^3/ul (0.0-0.5); EOSINOPHILS % 2.9 % (0.0-7.0); HEMOGLOBIN 10.5 g/dl (12.0-16.0); LYMPHOCYTES # 2.6 10^3/ul (0.8-2.9); LYMPHOCYTES % 26.6 % (15.0-51.0); MEAN CORPUSCULAR HEMOGLOBIN 24.6 pg (29.0-33.0); MEAN CORPUSCULAR HGB CONC 30.9 g/dl (32.0-37.0); MEAN CORPUSCULAR VOLUME 79.8 fl (82.0-101.0); MEAN PLATELET VOLUME 9.5 fl (7.4-10.4); MONOCYTE # 0.7 10^3/ul (0.3-0.9); MONOCYTES % 7.1 % (0.0-11.0); NEUTROPHILS % 62.5 % (39.0-77.0); PLATELET COUNT 414 10^3/UL (140-415); RED BLOOD COUNT 4.26 10^6/ul (4.20-5.40); RED CELL DISTRIBUTION WIDTH 15.9 % (11.5-14.5); WHITE BLOOD COUNT 9.7 10^3/ul (4.8-10.8)
[2017-03-12 07:23] LABS: CALCIUM 8.5 mg/dl (8.4-10.2); CREATININE 0.79 mg/dl (0.44-1.00); POTASSIUM 3.7 mmol/L (3.5-5.1)
[2017-03-12 07:25] VITALS: BP 112/53; RESP 16
[2017-03-12] MEDS: LEVOFLOXACIN 750MG/D5W (PMX) 150 ML IVPB SCH (08:00)
[2017-03-12] MEDS: HYDROCODONE/APAP (5/325) TAB PO PRN ×2 (08:23→21:17)
[2017-03-12] MEDS: CHOLECALCIFEROL 1,000 UNIT TAB PO SCH (08:23)
[2017-03-12] MEDS: AMLODIPINE 10 MG TAB PO SCH (08:24)
[2017-03-12] MEDS: HYDROCHLOROTHIAZIDE 25 MG TAB PO SCH (08:24)
[2017-03-12] MEDS: VALSARTAN 160 MG TAB PO SCH (08:25)
[2017-03-12] MEDS: MECLIZINE 25 MG TAB PO PRN (08:29)
[2017-03-12] MEDS: METOCLOPRAMIDE 10 MG TAB PO SCH ×3 (13:22→23:53)
--- NOTE | 2017-03-12 17:55 | PN ---
Date/Time of Note Date/Time of Note DATE: 03/12/17 TIME: 17:54 Assessment/Plan VTE Prophylaxis VTE Prophylaxis Intervention: SCD's Lines/Catheters IV Catheter Type (from Nrs): [place] Urinary Cath still in place: No Assessment/Plan Assessment/Plan 1. Right breast sebaceous cyst with cellulitis, on antibiotics(levaquin/ clindamycin) 2. Thyroid nodule, s/p US guided biopsy 3. Hypertension, controlled 4. Chronic vertigo, currently stable. 5. Morbid obesity. SCD for DVT prophylaxis IVF Pain control Reglan and zofran for nausea, vomiting, [place] d/c home tomorrow with PO abx Subjective 24 Hr Interval Summary Free Text/Dictation c/o nausea, did not tolerate PO diet, today, Lost IV access Exam/Review of Systems Vital Signs Vitals Vital Signs Date Time Temp Pulse Resp B/P Pulse Ox O2 Delivery O2 Flow Rate FiO2 03/12/17 07:25 97.5 83 16 112/53 98 Intake and Output 03/11/17 03/11/17 03/12/17 15:00 23:00 07:00 Intake Total 400 ml 1650 ml Balance 400 ml 1650 ml Exam Constitutional: alert, obese (morbidly), oriented Psych: nl mood/affect Head: normocephalic Neck: No jvd Respiratory: clear to auscultation, normal air movement Cardiovascular: regular rate and rhythm Gastrointestinal: non-tender, soft Genitourinary - Female: other (noted with wound on breast ) Neurological: ETL PROGRAMMER II-XII intact, nl mental status, nl speech Skin: other (wound noted on breast on the right ) Results Result Diagram: 03/12/17 0545 03/12/17 0545 Results 24 hrs Laboratory Tests Test 03/12/17 05:45 White Blood Count 9.7 # Red Blood Count 4.26 Hemoglobin 10.5 L Hematocrit 34.0 L Mean Corpuscular Volume 79.8 L Mean Corpuscular Hemoglobin 24.6 L Mean Corpuscular Hemoglobin Concent 30.9 L Red Cell Distribution Width 15.9 H Platelet Count 414 Mean Platelet Volume 9.5 Neutrophils % 62.5 Lymphocytes % 26.6 Monocytes % 7.1 Eosinophils % 2.9 Basophils % 0.6 Nucleated Red Blood Cells % 0.0 Neutrophils # 6.0 Lymphocytes # 2.6 Monocytes # 0.7 Eosinophils # 0.3 Basophils # 0.1 Nucleated Red Blood Cells # 0.0 Sodium Level 134 L Potassium Level 3.7 Chloride Level 105 Carbon Dioxide Level 25 Anion Gap 8 Blood Urea Nitrogen 11 Creatinine 0.79 Glucose Level 94 Calcium Level 8.5 Medications Medications Current Medications Ondansetron HCl (Zofran Inj) 4 mg Q6H PRN IV NAUSEA AND/OR VOMITING Last administered on 03/12/17 11:35; Admin Dose 4 MG; Start 03/06/17 at 05:30 Acetaminophen (Tylenol Tab) 650 mg Q6H PRN PO PAIN LEVEL 1-3 OR FEVER; Start at 05:30 Amlodipine Besylate (Norvasc) 10 mg DAILY PO Last administered on 03/11/17 08: 38; Admin Dose 10 MG; Start 03/06/17 at 09:00 Ranitidine HCl (Zantac) 150 mg PRN PO ; Start 03/06/17 at 05:30 Valsartan (Diovan) 160 mg DAILY PO Last administered on 03/11/17 08:37; Admin Dose 160 MG; Start 03/06/17 at 09:00 Morphine Sulfate (morphine) 4 mg Q4H PRN IV SEVERE PAIN LEVEL 7-10 Last administered on 03/10/17 11:38; Admin Dose 4 MG; Start 03/06/17 at 05:38 Hydrochlorothiazide (Hydrochlorothiazide) 25 mg DAILY PO Last administered on 08:37; Admin Dose 25 MG; Start 03/06/17 at 09:00 Acetaminophen/ Hydrocodone Bitart ([place] (5/325)) 1 tab Q4H PRN PO pain Last administered on 03/12/17 08:23; Admin Dose 1 TAB; Start 03/06/17 at 15:30 Zolpidem Tartrate (Ambien) 5 mg HS PRN PO INSOMNIA Last administered on 22:32; Admin Dose 5 MG; Start 03/06/17 at 17:00 Pantoprazole (Protonix Tab) 40 mg DAILY@06 PO Last administered on 03/12/17 06 :05; Admin Dose 40 MG; Start 03/07/17 at 21:00 Meclizine HCl (Antivert) 25 mg Q6 PRN PO VERTIGO Last administered on 08:29; Admin Dose 25 MG; Start 03/08/17 at 11:00 Lorazepam (Ativan) 1 mg Q6H PRN PO ANXIETY; Start 03/08/17 at 11:00 Cholecalciferol 1000 unit 1,000 unit DAILY PO Last administered on 03/12/17 08 :23; Admin Dose 1,000 UNIT; Start 03/08/17 at 16:30 Sodium Chloride (NS) 1,000 ml @ 70 mls/hr [id number] IV Last administered on 03/12 06:52; Admin Dose 70 MLS/HR; Start 03/08/17 at 16:30 Loperamide HCl (Imodium Cap) 2 mg TID PRN PO DIARRHEA Last administered on 03/11 15:50; Admin Dose 2 MG; Start 03/10/17 at 23:00 Metoclopramide HCl (Reglan) 10 mg Q6 PO Last administered on 03/12/17 17:19; Admin Dose 10 MG; Start 03/12/17 at 13:30 Clindamycin HCl (Cleocin) 300 mg TID PO ; Start 03/12/17 at 21:00 YANI WINSLOW MD March 12, 2017 17:55
[2017-03-12 20:00] VITALS: BP 122/51; RESP 20
[2017-03-12] MEDS: CLINDAMYCIN 300 MG CAP PO SCH (20:38)
[2017-03-13] MEDS: PANTOPRAZOLE (EC) 40 MG TAB PO SCH (05:41)
[2017-03-13] MEDS: METOCLOPRAMIDE 10 MG TAB PO SCH ×2 (05:41→11:23)
[2017-03-13 07:30] VITALS: BP 109/59; RESP 18
[2017-03-13] MEDS: VALSARTAN 160 MG TAB PO SCH (08:18)
[2017-03-13] MEDS: AMLODIPINE 10 MG TAB PO SCH (08:19)
[2017-03-13] MEDS: HYDROCHLOROTHIAZIDE 25 MG TAB PO SCH (08:19)
[2017-03-13] MEDS: CHOLECALCIFEROL 1,000 UNIT TAB PO SCH (08:22)
[2017-03-13] MEDS: HYDROCODONE/APAP (5/325) TAB PO PRN (08:23)
[2017-03-13] MEDS: MECLIZINE 25 MG TAB PO PRN (08:23)
[2017-03-13] MEDS: CLINDAMYCIN 300 MG CAP PO SCH ×2 (08:23→12:21)
--- NOTE | 2017-03-13 11:50 | PDOCDIS ---
Discharge Instructions CONDITION Patient Condition: Good HOME CARE INSTRUCTIONS: Special Diet: Low cholesterol, low fat ACTIVITY: Activity Restrictions: Slowly Increase Activity Rest between Activity Avoid heavy lifting Avoid Heavy Housework FOLLOW UP/APPOINTMENTS Appointments Follow up with her own PMD through HMO insurance in 1-2 week after discharge YANI WINSLOW MD Mar 13, 2017 11:50
[2017-03-13] MEDS ORDERED: METO10TA92 PO (11:53)
[2017-03-13] MEDS ORDERED: CLIN-73 PO (11:53)
--- NOTE | 2017-03-13 23:16 | DS ---
DATE OF ADMISSION: 03/06/2017 DATE OF DISCHARGE: 03/13/2017 FINAL DISCHARGE DIAGNOSES: 1. Right breast cellulitis with sebaceous cyst. 2. Thyroid nodule, status post ultrasound-guided biopsy. 3. Hypertension. 4. Chronic vertigo. 5. Morbid obesity. 6. ____. CONSULTATIONS DONE DURING THIS HOSPITALIZATION: General surgery consult, Dr. Westley Casas. PROCEDURES PERFORMED DURING THIS HOSPITALIZATION: The patient had ultrasound-guided biopsy of the t hyroid nodule done during this hospitalization. The pathology report was pending at the time of the discharge. HOSPITAL COURSE: This is a 51-year-old female with a past medical history of chronic vertigo, hyper tension, history of previous right ankle surgery in April 2010, who presented with right breast pain, swelling, erythema, and also had a sebaceous cyst over there. She was diagnosed with right breast cellulitis. The patient had a general surgery consultation done by Dr. Westley Casas, who recommend ed conservative management with IV antibiotics and pain control. The patient was started on IV anti biotics, Levaquin and clindamycin, for better coverage for cellulitis. She remained afebrile. Whit e count improved back to the normal. The patient was noted to have a thyroid nodule, for which she had ultrasound-guided biopsy of the thyroid nodule done, which revealed a benign follicular nodule. The patient was hemodynamically stable. She also was complaining of some persistent nausea and vom iting, for which she was given Reglan while being in the hospital. Her nausea and vomiting resolved . She was tolerating her diet and she is getting discharged home with prescriptions of clindamycin for cellulitis and Reglan p.r.n. nausea, vomiting. DISPOSITION: To home. DISCHARGE CONDITION: Stable and improved compared to admission. DISCHARGE ACTIVITIES: As tolerated, slowly resume to the normal baseline activity. DISCHARGE DIET: Low fat, low sodium diet. DISCHARGE MEDICATIONS: As per medical reconciliation. She is given prescriptions for: 1. Clindamycin 300 mg p.o. t.i.d. x7 days. 2. Reglan 10 mg p.o. q.6h. p.r.n. nausea, vomiting. DISCHARGE FOLLOWUP INSTRUCTIONS: The patient is advised to follow up with her own primary care doct or through her HMO insurance 1 to 2 weeks after discharge, and she is advised to follow up and have her primary care get the biopsy report of thyroid nodule. The preliminary report of the thyroid nod ule is a benign fascicular nodule. She has been explained about the discharge plan and followup ins tructions. She understood and verbalized understanding. Dictated By: YANI WINSLOW MD, KP/KATHLEEN Conf#: [id number] DID#: [id number]
== END 2017-03-13 14:24 | disposition home or self-care (01) | DRG 872 ==
LOC: E/R 21:22 → PP2 03-06 03:44
PROVIDERS: ADMIT Internal Medicine; ATTEND Internal Medicine
PROC: 0GBH3ZX Excision of Right Thyroid Gland Lobe, Percutaneous Approach, Diagnostic (ICD-10-PCS; principal; 2017-03-11)
DX: A41.9 Sepsis, unspecified organism (principal); N17.9 Acute kidney failure, unspecified; Z68.43 Body mass index [BMI] 50.0-59.9, adult; E66.01 Morbid (severe) obesity due to excess calories; N60.81 Other benign mammary dysplasias of right breast; N61.0 Mastitis without abscess; I16.0 Hypertensive urgency; R42 Dizziness and giddiness; E04.1 Nontoxic single thyroid nodule; F41.9 Anxiety disorder, unspecified; F32.9 Major depressive disorder, single episode, unspecified
CPT/HCPCS: 36415; 70450; 71260; 76536; 76942; 80048; 80053; 80200; 81001; 82306; 82652; 83036; 83735; 84100; 84436; 84479; 84484; 85025; 85610; 85730; 87040; 87070; 88104; 88307; 96365; J1956; J2060; J2270; J2405; J3260; J7030; J7040; Q9967

== ENCOUNTER 2017-05-04 22:47 | Emergency (ER) | payer OTHER ==
[~2017-05-04] VITALS: Ht 170.2 cm; Wt 171.0 kg
[~2017-05-04 22:47] MED LIST: AMLO-147 PO; CETI10CA PO; CLIN-73 PO; IBUP200C11 PO; METO10TA92 PO; RANI150T9 PO; VALS1TAB12 PO
[2017-05-04 23:22] VITALS: Ht 170.2 cm; Wt 171.0 kg
[2017-05-05] MEDS ORDERED: SOD CHLORIDE 0.9% 1,000 ML IV STA (00:26)
[2017-05-05 01:28] LABS: BASOPHIL # 0.1 10^3/ul (0.0-0.1); BASOPHILS % 0.5 % (0.0-2.0); EOSINOPHILS # 0.2 10^3/ul (0.0-0.5); HEMATOCRIT 40.7 % (37.0-47.0); HEMOGLOBIN 12.5 g/dl (12.0-16.0); LYMPHOCYTES # 2.9 10^3/ul (0.8-2.9); LYMPHOCYTES % 17.8 % (15.0-51.0); MEAN CORPUSCULAR HEMOGLOBIN 24.2 pg (29.0-33.0); MEAN CORPUSCULAR HGB CONC 30.7 g/dl (32.0-37.0); MEAN CORPUSCULAR VOLUME 78.9 fl (82.0-101.0); MEAN PLATELET VOLUME 9.5 fl (7.4-10.4); MONOCYTE # 0.9 10^3/ul (0.3-0.9); MONOCYTES % 5.2 % (0.0-11.0); NEUTROPHIL # 12.2 10^3/ul (1.6-7.5); NEUTROPHILS % 75.1 % (39.0-77.0); PLATELET COUNT 565 10^3/UL (140-415); RED BLOOD COUNT 5.16 10^6/ul (4.20-5.40); WHITE BLOOD COUNT 16.3 10^3/ul (4.8-10.8)
[2017-05-05 01:43] LABS: ADD UMIC YES; UR ASCORBIC ACID NEGATIVE (NEGATIVE); UR BACTERIA FEW /HPF (NONE SEEN); UR BILIRUBIN (Dip) NEGATIVE (NEGATIVE); UR BLOOD (Dip) 2+ mg/dL (NEGATIVE); UR CLARITY CLOUDY (CLEAR); UR COLOR AMBER (YELLOW); UR GLUCOSE (Dip) NEGATIVE (NEGATIVE); UR KETONES (Dip) TRACE mg/dL (NEGATIVE); UR LEUKOCYTE ESTERASE (Dip) TRACE Leu/ul (NEGATIVE); UR MUCUS FEW /HPF (NONE SEEN); UR NITRITE (Dip) NEGATIVE (NEGATIVE); UR RBC 13 /HPF (0-5); UR SPECIFIC GRAVITY (Dip) 1.029 (1.003-1.030); UR SQUAMOUS EPITHELIAL CELL FEW /HPF (FEW); UR TOTAL PROTEIN (Dip) 1+ mg/dl (NEGATIVE); UR UROBILINOGEN (Dip) NEGATIVE (NEGATIVE)
[2017-05-05 02:04] LABS: ALBUMIN 4.4 g/dl (3.3-4.9); ALBUMIN/GLOBULIN RATIO 1.22; BILIRUBIN,INDIRECT 0.2 mg/dl (0-1.1); BILIRUBIN,TOTAL 0.2 mg/dl (0.2-1.3); CALCIUM 9.7 mg/dl (8.4-10.2); CREATININE 1.19 mg/dl (0.44-1.00); POTASSIUM 3.9 mmol/L (3.5-5.1)
[2017-05-05] MEDS ORDERED: ACETAMINOPHEN 325 MG TAB PO ONE (02:30)
[2017-05-05] MEDS ORDERED: ACET325T33 PO (02:52)
[2017-05-05] MEDS ORDERED: CLIN-73 PO (02:52)
[2017-05-05] MEDS ORDERED: CLINDAMYCIN 600 MG/D5W (PMX) 50 ML IVPB SCH (03:00)
[2017-05-05] MEDS ORDERED: SULF1TAB31 PO (03:14)
--- NOTE | 2017-05-05 03:43 | ERD ---
ER Documentation Chief Complaint Date/Time DATE: 05/05/17 TIME: 03:38 Chief Complaint possible infection on the breast HPI 51-year-old female patient with a past medical history of morbid obesity, hypertension presents the ED complaining of a possible infection of her right breast. Patient states that she was seen here on March 06, 2017 for similar symptoms. States that she also has headaches, dizziness, nausea. Reports that she has a lesion of her right breast that was similar to when she was admitted at this time. Denies any fever, chills, chest pain, shortness of breath, wheezing, abdominal pain. ROS All systems reviewed and are negative except as per history of present illness. Medications Home Meds Active Scripts Sulfamethoxazole/Trimethoprim* (Bactrim Ds* Tablet) 1 Each Tablet, 1 TAB PO BID for 10 Days, TAB Prov:ERIC SALDIVAR PA-C 05/05/17 Acetaminophen* (Tylenol*) 325 Mg Tablet, 2 TAB PO Q8 Y for PAIN AND OR ELEVATED TEMP, #20 TAB Prov:ERIC SALDIVAR PA-C 05/05/17 Clindamycin Hcl* (Clindamycin Hcl*) 300 Mg Capsule, 300 MG PO TID for 10 Days, CAP Prov:ERIC SALDIVAR PA-C 05/05/17 Metoclopramide* (Reglan*) 10 Mg Tablet, 10 MG PO Q6H Y for NAUSEA AND OR VOMITING, #30 TAB Prov:YANI WINSLOW MD 03/13/17 Clindamycin Hcl* (Clindamycin Hcl*) 300 Mg Capsule, 300 MG PO TID for Breast cellulitis , #21 CAP Prov:YANI WINSLOW MD 03/13/17 Reported Medications Ibuprofen* (Advil*) 200 Mg Capsule, 800 MG PO QHS Y for PAIN, CAP 03/06/17 Ranitidine Hcl* (Zantac*) 150 Mg Tablet, 150 MG PO PRN, #60 TAB 03/06/17 Cetirizine Hcl* (Zyrtec*) 10 Mg Capsule, 10 MG PO Y for ALLERGY SIGNS, TAB 03/06/17 Valsartan/Hydrochlorothiazide (Diovan Hct 160-25 mg Tablet) 1 Each Tablet, 1 EACH PO DAILY, TAB 03/06/17 Amlodipine Besylate* (Amlodipine Besylate*) 10 Mg Tablet, 10 MG PO DAILY, #30 TAB 03/06/17 Allergies Allergies: Coded Allergies: tobramycin (Verified Allergy, Intermediate, 03/06/17) mild rash, pressure in the ears, dizziness cefazolin (Verified Allergy, Unknown, 03/05/17) vancomycin (Verified Allergy, Unknown, 03/05/17) PMhx/Soc History of Surgery: Yes (right ankle 04/2010) Anesthesia Reaction: No Hx Neurological Disorder: Yes (Vertigo ) Hx Respiratory Disorders: No Hx Cardiac Disorders: Yes (HTN) Hx Psychiatric Problems: No Hx Miscellaneous Medical Probl: No Hx Alcohol Use: No Hx Substance Use: No Hx Tobacco Use: No Physical Exam Vitals Vital Signs Date Time Temp Pulse Resp B/P Pulse Ox O2 Delivery O2 Flow Rate FiO2 05/04/17 23:22 97.8 108 20 141/80 98 Physical Exam Const: [id number], well-nourished. In no acute distress. Head: Atraumatic, normocephalic Eyes: Normal Conjunctiva without injection. No purulent discharge. PERRL. EOMI ENT: Normal external ear. Ear canal without erythema. Tympanic membrane pearly guerra without effusion or bulging. Nasal canal clear with normal turbinates. Moist oropharynx without tonsillar exudates. Non-erythematous pharynx. Uvula midline. No drooling. No trismus. Neck: Full range of motion. No meningismus. No cervical lymphadenopathy. Resp: Clear to auscultation bilaterally. No wheezing, rhonchi, rales, or crackles. No accessory muscle use. No retractions. Cardio: Regular rate and rhythm. No murmurs, rubs or gallops. Breast: 1 cm ulcerated lesion with no fluctuance or induration at the 4:00 o clock location of patient's right breast. No bleeding noted. No surrounding erythema, edema. Scabbing noted at the previous ulcerated lesion site. Abd: Soft, non tender, non distended. Normal bowel sounds. No palpable masses. No rebound tenderness. No guarding. Skin: No petechiae or rashes Back: No midline tenderness. No CVA tenderness. Ext: No cyanosis, or edema. Neur: Awake and alert. Psych: Normal Mood and Affect Result Diagram: 05/05/17 01005/05/17 0100 Results 24 hrs Laboratory Tests Test 05/05/17 01:00 White Blood Count 16.310^3/ul Red Blood Count 5.1610^6/ul Hemoglobin 12.5g/dl Hematocrit 40.7% Mean Corpuscular Volume 78.9fl Mean Corpuscular Hemoglobin 24.2pg Mean Corpuscular Hemoglobin Concent 30.7g/dl Red Cell Distribution Width 16.0% Platelet Count 49213^3/UL Mean Platelet Volume 9.5fl Neutrophils % 75.1% Lymphocytes % 17.8% Monocytes % 5.2% Eosinophils % 1.0% Basophils % 0.5% Nucleated Red Blood Cells % 0.0/100WBC Neutrophils # 12.210^3/ul Lymphocytes # 2.910^3/ul Monocytes # 0.910^3/ul Eosinophils # 0.210^3/ul Basophils # 0.110^3/ul Nucleated Red Blood Cells # 0.010^3/ul Urine Color JAYE Urine Clarity CLOUDY Urine pH 5.0 Urine Specific [place] 1.029 Urine Ketones TRACEmg/dL Urine Nitrite NEGATIVEmg/dL Urine Bilirubin NEGATIVEmg/dL Urine Urobilinogen NEGATIVEmg/dL Urine Leukocyte Esterase TRACELeu/ul Urine Microscopic RBC 13/HPF Urine Microscopic WBC 2/HPF Urine Squamous Epithelial Cells FEW/HPF Urine Bacteria FEW/HPF Urine Hyaline Casts FEW/HPF Urine Mucus FEW/HPF Urine Hemoglobin 2+mg/dL Urine Glucose NEGATIVEmg/dL Urine Total Protein 1+mg/dl Sodium Level 144mmol/L Potassium Level 3.9mmol/L Chloride Level 102mmol/L Carbon Dioxide Level 23mmol/L Anion Gap 23 Blood Urea Nitrogen 18mg/dl Creatinine 1.19mg/dl Glucose Level 102mg/dl Calcium Level 9.7mg/dl Total Bilirubin 0.2mg/dl Direct Bilirubin 0.00mg/dl Indirect Bilirubin 0.2mg/dl Aspartate Amino Transf (AST/SGOT) 17IU/L Alanine Aminotransferase (ALT/SGPT) 25IU/L Alkaline Phosphatase 113IU/L Total Protein 8.0g/dl Albumin 4.4g/dl Globulin 3.60g/dl Albumin/Globulin Ratio 1.22 Current Medications Medications (Trade) Dose Ordered Sig/Gerardo Route PRN Reason Start Time Stop Time Status Last Admin Dose Admin Sodium Chloride (NS) 1,000 ml @ 1,000 mls/hr Q1H STAT IV 05/05/17 00:26 05/05/17 01:25 DC 05/05/17 01:08 Acetaminophen 650 mg 650 mg ONCE ONCE PO 05/05/17 02:30 05/05/17 02:31 DC 05/05/17 02:23 Clindamycin HCl/ Dextrose (Cleocin 600 Mg/ D5W (Pmx)) 50 ml @ 50 mls/hr ONCE IVPB 05/05/17 03:00 05/05/17 03:59 05/05/17 02:48 Procedures/MDM This is a 51-year-old female patient with a past medical history of hypertension , morbid obesity, breast sebaceous cyst presents to the ED complaining of a weeping ulcerated lesion noted of her right breast that started 1 week ago. Patient is afebrile and nontoxic-appearing. Patient has normal vital signs. At this time there is no radiologist I will read a breast ultrasound. I strictly instructed patient that she should follow-up with her primary care physician or [employer] for further evaluation treatment with an ultrasound as it is unable available at this time. Patient was further worked up with CBC, CMP, lipase, UA. Patient's pain and symptoms have improved after treatment with Tylenol and 1 L normal saline. CBC: Slight leukocytosis of 16.4. No e/o anemia. CMP: No e/o severe acidosis, alkalosis, Cr 1.19. No diabetic ketoacidosis, liver disease Lipase within normal limits. Urine: No leukocyte esterase, no nitrites, no hematuria. This could be an early cellulitic infection of her right breast. Previous ultrasound of the breasts showed no abscess. There is no fluctuation. It showed sebaceous cysts. There is low suspicion for abscess, deep space infection.. A differential diagnosis considered includes but is not limited to gastritis, GERD, peptic ulcer disease, cholecystitis, choledocholithiasis, cholangitis, pancreatitis, appendicitis, bowel obstruction, ileus, volvulus, nephrolithiasis, pyelonephritis, hepatitis, perforated viscus, diverticulitis, abdominal hernia, acute abdomen, mesenteric ischemia or other emergent conditions. This case was discussed with my supervising physician, Dr. Strong who agreed with the management and discharge plan - stated the patient can be managed on outpatient basis. Discharge medications: Bactrim, Tylenol, Clindamycin Follow up with primary care physician in 1-2 days for referral to child care sitter. Instructed patient to return to the ED sooner for any worsening symptoms. Patient's questions were answered. Patient understood and agreed with discharge plan. Patient discharged stable. Departure Diagnosis: Primary Impression: Encounter for wound re-check Condition: Stable Patient Instructions: Wound Care, Recognizing and Treating Wound Infection, Breast Exam, Clinical Referrals: [facility] YOU HAVE RECEIVED A MEDICAL SCREENING EXAM AND THE RESULTS INDICATE THAT YOU DO NOT HAVE A CONDITION THAT REQUIRES URGENT TREATMENT IN THE EMERGENCY DEPARTMENT. FURTHER EVALUATION AND TREATMENT OF YOUR CONDITION CAN WAIT UNTIL YOU ARE SEEN IN YOUR DOCTORS OFFICE WITHIN THE NEXT 1-2 DAYS. IT IS YOUR RESPONSIBILITY TO MAKE AN APPOINTMENT FOR FOLOW-UP CARE. IF YOU HAVE A PRIMARY DOCTOR --you should call your primary doctor and schedule an appointment IF YOU DO NOT HAVE A PRIMARY DOCTOR YOU CAN CALL OUR PHYSICIAN REFERRAL HOTLINE AT IF YOU CAN NOT AFFORD TO SEE A PHYSICIAN YOU CAN CHOSE FROM THE FOLLOWING [facility] [place] [address] [facility] [address] [facility]. [facility] [address] [facility] [address] [facility] [address] [facility]. [facility]. [address] [facility]. [facility] YOU HAVE RECEIVED A MEDICAL SCREENING EXAM AND THE RESULTS INDICATE THAT YOU DO NOT HAVE A CONDITION THAT REQUIRES URGENT TREATMENT IN THE EMERGENCY DEPARTMENT. FURTHER EVALUATION AND TREATMENT OF YOUR CONDITION CAN WAIT UNTIL YOU ARE SEEN IN YOUR DOCTORS OFFICE WITHIN THE NEXT 1-2 DAYS. IT IS YOUR RESPONSIBILITY TO MAKE AN APPOINTMENT FOR FOLOW-UP CARE. IF YOU HAVE A PRIMARY DOCTOR --you should call your primary doctor and schedule and appointment IF YOU DO NOT HAVE A PRIMARY DOCTOR YOU CAN CALL OUR PHYSICIAN REFERRAL HOTLINE AT . IF YOU CAN NOT AFFORD TO SEE A PHYSICIAN YOU CAN CHOSE FROM THE FOLLOWING [facility] INSTITUTIONS: [facility] [address] [place] [address] [facility] [address] [place] [address] [facility] [address] [place] [address] [facility] Additional Instructions: Follow up in 2 days in your clinic for wound check. Call your primary care doctor TOMORROW for an appointment during the next 2-3 days for further evaluation and treatment with obtaining a breast ultrasound and other imaging as needed as it was unavailable tonight here in the ED.See the doctor sooner or return here if your condition worsens before your appointment time - fever, nausea, vomiting, etc. ERIC SALDIVAR PA-C May 05, 2017 03:43
[2017-05-05 04:14] VITALS: BP 119/74; PULSE 92; RESP 18; TEMP 97.2
== END 2017-05-05 04:14 | disposition home or self-care (01) ==
LOC: FTE 22:47
DX: L98.9 Disorder of the skin and subcutaneous tissue, unspecified (principal); I10 Essential (primary) hypertension; E66.01 Morbid (severe) obesity due to excess calories; Z48.00 Encounter for change or removal of nonsurgical wound dressing; Z68.43 Body mass index [BMI] 50.0-59.9, adult
CPT/HCPCS: 80053; 81001; 85025; J7030; 36415; 96374